=== PATIENT | female | born 1965 | race Two or more races ===

== ENCOUNTER 2024-09-05 12:17 | Emergency (ER) | payer MEDICAID ==
[~2024-09-05] VITALS: Ht 154.9 cm; Wt 94.8 kg
[2024-09-05 12:33] VITALS: BP 158/112; PULSE 103; RESP 18; O2SAT 96
--- NOTE | 2024-09-05 12:45 | ED.PDOC ---
History of Present Illness HPI Comments 58 y.o female with PMH of DM, HTN, hyperlipidemia, CVA, presents to the ED for a chief complaint of body pain and swelling associated with bilateral hand and digit numbness x 1 week. Patient reports "feeling bigger" than usual and describes pain as a throbbing sensation. Patient denies any focal weaknesses, sl urred speech, confusion, chest pain or SOB. Patient admits to not taking medications for the past 3 days due to personal issues at home and presents tearful upon assessment. Upon ED arrival, blood pressure read 158/112 Patient was on a medication for weight management, discontinue use by PCP orders 4 months ago, states weight has been 180lbs, today weigh in was at 209lb Chief Complaint: Body Pain Time Seen by MD: 12:20 Reviewed Notes: Nurses Notes, Medications, Allergies Allergies: Coded Allergies: NO KNOWN ALLERGIES (Unverified , 09/05/24) Information Source: Patient Mode of Arrival: Ambulatory Timing: Weeks (1) Duration: Since onset Past Medical History PAST MEDICAL HISTORY: CVA, DM, High Lipids, HTN Surgical History: , Hernia Repair, Hysterectomy, Pacemaker LEARNING AND DEVELOPMENT ADMINISTRATOR History: No Pertinent LEARNING AND DEVELOPMENT ADMINISTRATOR History Family History Family History: Reviewed,noncontributory to illness, No family hx of Cancer, No family hx of DM, No family hx of Heart meagan, No family hx of HTN, No family hx ofKidney meagan, No family hx of Liver meagan, No family hx of Lung meagan, No family hx of Stroke Social History Smoker: Non-Smoker Alcohol: Denies ETOH Use Drugs: Denies Drug Use Lives In: Home Constitutional: reports: others (swelling); denies: chills, diaphoresis, fatigue, fever, malaise, sweats, weakness EENTM: denies: blurred vision, double vision, ear bleeding, ear discharge, ear drainage, ear pain, ear ringing, eye pain, eye redness, hearing loss, mouth pain, mouth swelling, nasal discharge, nose bleeding, nose congestion, nose pain, photophobia, tearing, throat pain, throat swelling, voice changes, others Respiratory: denies: cough, hemoptysis, orthopnea, SOB at rest, shortness of breath, SOB with excertion, stridor, wheezing, others Cardiovascular: denies: chest pain, dizzy spells, diaphoresis, Dyspnea on exertion, edema, irregular heart beat, left arm pain, lightheadedness, palpitations, PND, syncope, others Gastrointestinal: denies: abdomen distended, abdominal pain, blood streaked bowels, constipated, diarrhea, dysphagia, difficulty swallowing, hematemesis, melena, nausea, poor appetite, poor fluid intake, rectal bleeding, rectal pain, vomiting, others Genitourinary: denies: abnormal vagina bleeding, burning, dyspareunia, dysuria, flank pain, frequency, hematuria, incontinence, pain, , vagina discharge, urgency, others Neurological: reports: numbness (bilateral hands ); denies: dizziness, fainting, headache, left sided numbness, left sided weakness, paresthesia, pre- existing deficit, right sided numbness, right sided weakness, seizure, speech problems, tingling, tremors, weakness, others Musculoskeletal: reports: joint swelling, muscle pain; denies: back pain, gout, joint pain, muscle stiffness, neck pain, others Integumetry: denies: bruises, change in color, change in hair/nails, dryness, laceration, lesions, lumps, rash, wounds, others Allergic/Immunocompromised: denies: Difficulty Healing, Frequent Infections, Hives, Itching, others Hematologic/Lymphatic: denies: anemia, blood clots, easy bleeding, easy bruising, swollen glands, others Endocrine: denies: excessive hunger, excessive sweating, excessive thirst, excessive urination, flushing, intolerance to cold, intolerance to heat, unexplained weight gain, unexplained weight loss, others Psychiatric: denies: anxiety, bipolar disorder, depression, hopeless, panic disorder, schizophrenia, sleepless, suicidal, others All Other Systems: Reviewed and Negative Physical Exam General Appearance: No Apparent Distress, Normal HEENT: Normal ENT Inspection, Pharynx Normal, TMs Normal Neck: Full Range of Motion, Non-Tender, Normal, Normal Inspection Respiratory: Chest Non-Tender, Lungs Clear, No Accessory Muscle Use, No Respiratory Distress, Normal Breath Sounds Cardiovascular: No Edema, No JVD, No Murmur, No Gallop, Normal Peripheral Pulses, Regular Rate/Rhythm Breast Exam: Deferred Gastrointestinal: No Organomegaly, Non Tender, No Pulsatile Mass, Normal Bowel Sounds, Soft Genitalia: Deferred Pelvic: Deferred Rectal: Deferred Extremities: No calf tenderness, Normal capillary refill, Normal inspection, Normal range of motion, Non-tender, No pedal edema Musculoskeletal : Apperance: Normal Neurologic: Alert, optical engineer II-XII nml as Tested, No Motor Deficits, Normal Affect, Normal Mood, No Sensory Deficits Cerebellar Function: Normal Reflexes: Normal Skin: Dry, Normal Color, Warm Lymphatic: No Adenopathy Was a procedure done? Was a procedure done?: No Differential Dx Considerations may include: chf, renal failure, medication noncompliance, weight gain, anxiety, electrolyte disorders, liver failure X-Ray, Labs, Meds, VS Vital Signs Date Time Temp Pulse Resp B/P (MAP) Pulse Ox O2 Delivery O2 Flow Rate FiO2 09/05/24 12:33 98.1 103 18 158/112 (127) 96 Lab Test 09/05/24 13:56 09/05/24 12:53 Range/Units Troponin I High Sensitivity 29 30 </=34 ng/L White Blood Count 5.8 4.4-10.8 10^3/uL Red Blood Count 4.83 4.0-5.20 10^6/uL Hemoglobin 14.0 12.2-16.2 g/dL Hematocrit 42.3 36.0-46.0 % Mean Corpuscular Volume 87.7 80.0-100.0 fL Mean Corpuscular Hemoglobin 29.1 28.0-32.0 pg Mean Corpuscular Hemoglobin Concent 33.2 32.0-36.0 g/dL Red Cell Distribution Width 14.9 H 11.8-14.3 % Platelet Count 189 140-450 10^3/uL Mean Platelet Volume 9.6 6.9-10.8 fL Neutrophils (%) (Auto) 55.6 37.0-80.0 % Lymphocytes (%) (Auto) 23.6 10.0-50.0 % Monocytes (%) (Auto) 10.0 0.0-12.0 % Eosinophils (%) (Auto) 9.4 H 0.0-7.0 % Basophils (%) (Auto) 1.4 0.0-2.0 % Neutrophils # (Auto) 3.2 1.6-8.6 10 ^3/uL Lymphocytes # (Auto) 1.4 0.4-5.4 10 ^3/uL Monocytes # (Auto) 0.6 0-1.3 10 ^3/uL Eosinophils # (Auto) 0.5 0-0.8 10 ^3/uL Basophils # (Auto) 0.1 0-0.2 10 ^3/uL Nucleated Red Blood Cells 0.1 % Sodium Level 139 136-145 mmol/L Potassium Level 4.1 3.5-5.1 mmol/L Chloride Level 103 98-107 mmol/L Carbon Dioxide Level 28 20-31 mmol/L Anion Gap 8 5-15 Blood Urea Nitrogen 13 9-23 mg/dL Creatinine 1.03 H 0.550-1.02 mg/dL Glomerular Filtration Rate Calc 63 >90 mL/min BUN/Creatinine Ratio 12.6 10.0-20.0 Serum Glucose 405 *H 74-106 mg/dL Calcium Level 9.8 8.7-10.4 mg/dL Total Bilirubin 0.6 0.2-1.0 mg/dL Aspartate Amino Transferase (AST) 23 13-40 U/L Alanine Aminotransferase (ALT) 25 7-40 U/L Alkaline Phosphatase 194 H 46-116 U/L B-Type Natriuretic Peptide 56.06 0-100 pg/mL Total Protein 6.8 5.7-8.2 g/dL Albumin 4.1 3.2-4.8 g/dL Current Medications Medications (Trade) Dose Ordered Sig/Clem Route Start Time Stop Time Status Last Admin Insulin Human Regular (InsuLIN R) 6 units ONCE ONCE SC 09/05/24 14:00 09/05/24 14:10 DC 09/05/24 14:31 Time of 1ST Reevaluation: 12:40 Reevaluation 1ST: Unchanged Time of 2ND Reevaluation: 13:30 Reevaluation 2ND: Improved Time of 3RD Reevaluation: 15:29 Reevaluation 3RD: pt eloped Patient Education/Counseling: Diagnosis, Treatment, Prognosis, Need For Follow Up Family Education/Counseling: Diagnosis, Treatment, Prognosis, Need For Follow Up, No Family Present Additional Information Ordered Test- CBC, CMP, ekg, trop, cxr Reviewed Results- LAB including BNP and Troponin, EKG, cxr Discuss Tx/Results- medical personnel, family independent interpretation of test results read by another provider- agree with radiology regarding cxr i was concerned about chf, renal failure, liver failure, causing 3rd spacing. i made preparation to admit pt for stabilization and further treatments/workups if these differentials were supported. however, pt eloped before workup is complete \\pt reportedly has been noncompliant to her medications due to stressors related to her family. i asked her to get her medications names, so i can refill them , but she left and never returned Departure 1 Departure Time of Disposition: 15:33 Impression: Primary Impression: Noncompliance Additional Impression: Feared complaint without diagnosis Disposition: 07 LEFT AWOL/ELOPED Condition: Other (unknown) Discharged With: Relative Critical Care Note Critical Care Time?: Yes (55 min-critical care time only) Critical care comment: due to concerns for sudden deterioration of pt's condition, the patient's care required my most attentive level and highest readiness to intervene. i assessed him, ordered the appropriate orders, reviewed the results, and reassessed the patient's response, formulated a care plan, communicated with medical personnel and consultants. total time include at least 50% face-face interaction and does not include any procedures Stability Stability form required: No I personally scribed for SJ KWOK MD ([facility]) on 09/05/24 at 12:45. Electronically submitted by Kizzy Amin ([email or web address]). I personally scribed for SJ KWOK MD ([facility]) on 09/05/24 at 12:58. Electronically submitted by Kizzy Amin ([email or web address]). I personally scribed for SJ KWOK MD ([facility]) on 09/05/24 at 13:01. Electronically submitted by Kizzy Amin ([email or web address]). SJ KWOK MD Sep 05, 2024 12:45
[2024-09-05 13:04] LABS: Basophils # (auto) 0.1 10 ^3/uL (0-0.2); Basophils % (auto) 1.4 % (0.0-2.0); Eosinophils # (auto) 0.5 10 ^3/uL (0-0.8); Eosinophils % (auto) 9.4 % (0.0-7.0); Hematocrit 42.3 % (36.0-46.0); Lymphocytes # (auto) 1.4 10 ^3/uL (0.4-5.4); Lymphocytes % (auto) 23.6 % (10.0-50.0); Mean Corpuscular Hemoglobin 29.1 pg (28.0-32.0); Mean Corpuscular Hgb Conc. 33.2 g/dL (32.0-36.0); Mean Corpuscular Volume 87.7 fL (80.0-100.0); Monocytes # (auto) 0.6 10 ^3/uL (0-1.3); Neutrophils # (auto) 3.2 10 ^3/uL (1.6-8.6); Neutrophils % (auto) 55.6 % (37.0-80.0); Nucleated Red Blood Cells % 0.1 %; Platelet Count (auto) 189 10^3/uL (140-450); Red Blood Cells 4.83 10^6/uL (4.0-5.20); Red Cell Distribution Width 14.9 % (11.8-14.3); White Blood Cell 5.8 10^3/uL (4.4-10.8)
[2024-09-05 13:34] LABS: Alanine Aminotransferase 25 U/L (7-40); Albumin 4.1 g/dL (3.2-4.8); Anion Gap 8 (5-15); Aspartate Aminotransferase 23 U/L (13-40); BUN/Creatinine Ratio 12.6 (10.0-20.0); Blood Urea Nitrogen 13 mg/dL (9-23); Calcium 9.8 mg/dL (8.7-10.4); Carbon Dioxide 28 mmol/L (20-31); Chloride 103 mmol/L (98-107); Potassium 4.1 mmol/L (3.5-5.1); Sodium 139 mmol/L (136-145)
[2024-09-05 13:35] LABS: Bilirubin, Total 0.6 mg/dL (0.2-1.0); Total Protein 6.8 g/dL (5.7-8.2)
[2024-09-05 13:42] LABS: Alkaline Phosphatase 194 U/L (46-116)
[2024-09-05 13:45] LABS: Glucose 405 mg/dL (74-106)
--- NOTE | 2024-09-05 13:52 | DVH ---
CLINICAL INFORMATION: 58 years old, Female; swelling. TECHNIQUE: Single AP portable chest radiograph was obtained. COMPARISON: None FINDINGS: Lungs: Clear. Cardiac: Heart size is within normal limits. Pulmonary vasculature: Unremarkable. Mediastinum/joleen: Unremarkable. Bones: No acute osseous abnormality identified. Other: Loop recorder device noted. IMPRESSION: No evidence of acute disease in the chest.
[2024-09-05] MEDS: InsuLIN REG 1unit/0.01ml Soln (100units/ml) SC ONE (14:31)
== END 2024-09-05 15:25 | disposition left against medical advice (07) ==
LOC: ER 12:17
DX: E11.9 Type 2 diabetes mellitus without complications (principal); E78.5 Hyperlipidemia, unspecified; I10 Essential (primary) hypertension; Z71.1 Person with feared health complaint in whom no diagnosis is made; Z86.73 Personal history of transient ischemic attack (TIA), and cerebral infarction without residual deficits; Z98.890 Other specified postprocedural states; Z90.710 Acquired absence of both cervix and uterus
CPT/HCPCS: 36415; 71045; 80053; 83880; 84484; 85025; 99284; J1815

== ENCOUNTER 2024-09-07 12:18 | Inpatient (IN) | payer MEDICAID ==
[~2024-09-07] VITALS: Ht 154.9 cm; Wt 97.2 kg
--- NOTE | 2024-09-07 12:53 | ED.PDOC ---
History of Present Illness HPI Comments 58F presents to the ER, due from being here yesterday at [facility] but eloping, This is the HPI that was written yesterday due from having the same symptoms, "58 y.o female with PMH of DM, HTN, hyperlipidemia, CVA, presents to the ED for a chief complaint of body pain and swelling associated with bilateral hand and digit numbness x 1 week. Patient reports "feeling bigger" than usual and describes pain as a throbbing sensation. Patient denies any focal weaknesses, slurred speech, confusion, chest pain or SOB. Patient admits to not taking medications for the past 3 days due to personal issues at home and presents tearful upon assessment. Upon ED arrival, blood pressure read 158/112 Patient was on a medication for weight management, discontinue use by PCP orders 4 months ago, states weight has been 180lbs, today weigh in was at 209lb". Pt was diagnosed w/ being hyperglycemic yesterday and eloped before getting Trx. Pt has been not compliant for medications for 4 months. Pt also reports on being in long car rides and also having right sided inner thigh/calf pain for 3 days. Chief Complaint: Dizziness Time Seen by MD: 12:35 Reviewed Notes: Nurses Notes, Medications, Allergies Allergies: Coded Allergies: NO KNOWN ALLERGIES (Unverified , 09/05/24) Information Source: Patient Mode of Arrival: Ambulatory Severity: Moderate Timing: Days Duration: Since onset, Days Prehospital treatment: None Past Medical History PAST MEDICAL HISTORY: CVA, DM, High Lipids, HTN Surgical History: , Hernia Repair, Hysterectomy, Pacemaker SUPERVISOR SPECIAL EFFECTS History: No Pertinent SUPERVISOR SPECIAL EFFECTS History Family History Family History: Reviewed,noncontributory to illness, No family hx of Cancer, No family hx of DM, No family hx of Heart meagan, No family hx of HTN, No family hx ofKidney meagan, No family hx of Liver meagan, No family hx of Lung meagan, No family hx of Stroke Social History Smoker: Non-Smoker Alcohol: Denies ETOH Use Drugs: Denies Drug Use Lives In: Home Constitutional: denies: chills, diaphoresis, fatigue, fever, malaise, sweats, weakness, others EENTM: denies: blurred vision, double vision, ear bleeding, ear discharge, ear drainage, ear pain, ear ringing, eye pain, eye redness, hearing loss, mouth pain, mouth swelling, nasal discharge, nose bleeding, nose congestion, nose pain, photophobia, tearing, throat pain, throat swelling, voice changes, others Respiratory: denies: cough, hemoptysis, orthopnea, SOB at rest, shortness of breath, SOB with excertion, stridor, wheezing, others Cardiovascular: denies: chest pain, dizzy spells, diaphoresis, Dyspnea on exertion, edema, irregular heart beat, left arm pain, lightheadedness, palpitations, PND, syncope, others Gastrointestinal: denies: abdomen distended, abdominal pain, blood streaked bowels, constipated, diarrhea, dysphagia, difficulty swallowing, hematemesis, melena, nausea, poor appetite, poor fluid intake, rectal bleeding, rectal pain, vomiting, others Genitourinary: denies: abnormal vagina bleeding, burning, dyspareunia, dysuria, flank pain, frequency, hematuria, incontinence, pain, , vagina discharge, urgency, others Neurological: reports: dizziness; denies: fainting, headache, left sided numbness, left sided weakness, numbness, paresthesia, pre-existing deficit, right sided numbness, right sided weakness, seizure, speech problems, tingling, tremors, weakness, others Musculoskeletal: reports: back pain; denies: gout, joint pain, joint swelling, muscle pain, muscle stiffness, neck pain, others Integumetry: denies: bruises, change in color, change in hair/nails, dryness, laceration, lesions, lumps, rash, wounds, others Allergic/Immunocompromised: denies: Difficulty Healing, Frequent Infections, Hives, Itching, others Hematologic/Lymphatic: denies: anemia, blood clots, easy bleeding, easy bruising, swollen glands, others Endocrine: denies: excessive hunger, excessive sweating, excessive thirst, excessive urination, flushing, intolerance to cold, intolerance to heat, unexplained weight gain, unexplained weight loss, others Psychiatric: denies: anxiety, bipolar disorder, depression, hopeless, panic disorder, schizophrenia, sleepless, suicidal, others All Other Systems: Reviewed and Negative Physical Exam Exam Comments Tender on inner right thigh and calf General Appearance: No Apparent Distress, Normal HEENT: Normal ENT Inspection, Pharynx Normal, TMs Normal Neck: Full Range of Motion, Non-Tender, Normal, Normal Inspection Respiratory: Chest Non-Tender, Lungs Clear, No Accessory Muscle Use, No Respiratory Distress, Normal Breath Sounds Cardiovascular: No Edema, No JVD, No Murmur, No Gallop, Normal Peripheral Pulses, Regular Rate/Rhythm Breast Exam: Deferred Gastrointestinal: No Organomegaly, Non Tender, No Pulsatile Mass, Normal Bowel Sounds, Soft Genitalia: Deferred Pelvic: Deferred Rectal: Deferred Extremities: No calf tenderness, Normal capillary refill, Normal inspection, Normal range of motion, Non-tender, No pedal edema Musculoskeletal : Apperance: Normal Neurologic: Alert, director of curriculum II-XII nml as Tested, No Motor Deficits, Normal Affect, Normal Mood, No Sensory Deficits Cerebellar Function: Normal Reflexes: Normal Skin: Dry, Normal Color, Warm Lymphatic: No Adenopathy Was a procedure done? Was a procedure done?: No EKG EKG : Pulse Rate (adult): 114 [place]: Normal Cardiac Rhythm: ST Block: None Hypertrophy: None ST: Normal Differential Dx Considerations may include: dvt, dka, poorly controlled diabetes, dehydration, electrolyte disorders, noncompliance, chf, renal failure, liver failure X-Ray, Labs, Meds, VS Vital Signs Date Time Temp Pulse Resp B/P (MAP) Pulse Ox O2 Delivery O2 Flow Rate FiO2 09/07/24 12:40 97.6 111 16 139/89 (106) 95 97.6 09/07/24 12:33 97.6 111 16 139/89 (106) 95 Lab Test 09/07/24 12:51 09/07/24 12:41 09/07/24 12:30 Range/Units Sodium Level 139 136-145 mmol/L Potassium Level 3.8 3.5-5.1 mmol/L Chloride Level 103 98-107 mmol/L Carbon Dioxide Level 24 20-31 mmol/L Anion Gap 12 5-15 Blood Urea Nitrogen 21 9-23 mg/dL Creatinine 1.13 H 0.550-1.02 mg/dL Glomerular Filtration Rate Calc 57 >90 mL/min BUN/Creatinine Ratio 18.6 10.0-20.0 Serum Glucose 289 H 74-106 mg/dL Calcium Level 10.3 8.7-10.4 mg/dL Troponin I High Sensitivity 31 </=34 ng/L Urine Color Light-yellow Yellow Urine Clarity Clear Clear Urine pH 5.0 5.0-9.0 Urine Specific [place] 1.032 1.001-1.035 Urine Protein Negative Negative Urine Ketones Negative Negative Urine Blood Negative Negative /uL Urine Nitrite Negative Negative Urine Bilirubin Negative Negative Urine Urobilinogen Normal Negative mg/dL Urine Leukocyte Esterase Negative Negative /uL Urine RBC 2 0 - 4 /hpf Urine WBC 2 0 - 5 /hpf Urine Squamous Epithelial Cells Few <5 /hpf Urine Bacteria Few H None Seen /hpf Urine Mucus Few None Seen Urine Yeast (Budding) Occasional None Seen /hpf Urine Glucose 4+ H Normal mg/dL POC Glucose 307 H 70-106 mg/dl Time of 1ST Reevaluation: 13:05 Reevaluation 1ST: Unchanged Time of 2ND Reevaluation: 14:02 Reevaluation 2ND: Unchanged Patient Education/Counseling: Diagnosis, Treatment, Prognosis, Need For Follow Up Family Education/Counseling: No Family Present Additional Information - I reviewed the following notes from patient's past medical encounters:09/05/24 - The following tests were ordered, and results were reviewed by me: Labs, EKG, cxr, us - independent interpretation of test result from another provider and agreed- cxr, us - Additional information was gathered from interviewing the following independent Historian: Family - I discussed treatments and results with medical personnel and consultants, family this is a highly noncompliant pt. she was seen yesterday, had elevated BS, eloped, and returned with the same symptoms. she also reported right leg pain, after driving from [place]. she is negative for DVT, but her BS is again out of contr ol. she is not in DKA, but if not treated, and not compliant, she will be at real risk to deteriorate into DKA. pt will be admitted to control her diabetes, provided education, and mediation management Departure 1 Departure Time of Disposition: 14:05 Impression: Primary Impression: Poorly controlled diabetes mellitus Additional Impressions: Myalgia Noncompliance Renal insufficiency Hypertension Qualified Codes: I10 - Essential (primary) hypertension Disposition: 09 ADMITTED INPATIENT Condition: Stable Critical Care Note Critical Care Time?: Yes (55 min-critical care time only) Critical care comment: due to the likelihood of patients condition suddenly deteriorating, the care requires my highest level of attention, readiness to intervene. my critical care include assessing and reassessing of patient's condition, response to treatments, ordering the appropriate tests, reviewing the results, ordering of treatments, discussing the care with medical personnel and consultants, and formulating a treatment plan, as well a reviewing various medical records. this include at least 50% face-face interaction, and does not include any procedures Stability Stability form required: No I personally scribed for SJ KWOK MD ([email or web address]) on 09/07/24 at 12:53. Electronically submitted by Luis Felipe Durham ([email or web address]). SJ KWOK MD Sep 07, 2024 12:53
[2024-09-07 13:15] LABS: Chloride 103 mmol/L (98-107); Potassium 3.8 mmol/L (3.5-5.1); Sodium 139 mmol/L (136-145)
[2024-09-07 13:16] LABS: Anion Gap 12 (5-15); Calcium 10.3 mg/dL (8.7-10.4); Carbon Dioxide 24 mmol/L (20-31)
[2024-09-07 13:21] LABS: BUN/Creatinine Ratio 18.6 (10.0-20.0); Blood Urea Nitrogen 21 mg/dL (9-23)
[2024-09-07 13:28] LABS: Glucose 289 mg/dL (74-106)
[2024-09-07 13:44] LABS: Urine Bacteria FEW /hpf (None Seen); Urine Blood Negative /uL (Negative); Urine Budding Yeast OCCASIONAL /hpf (None Seen); Urine Clarity Clear (Clear); Urine Color Light-Yellow (Yellow); Urine Mucus FEW (None Seen); Urine Protein, UAD Negative (Negative); Urine Specific Gravity 1.032 (1.001-1.035); Urine Urobilinogen Normal (Negative); Urine WBC 2 /hpf (0 - 5)
--- NOTE | 2024-09-07 13:46 | DVH ---
CLINICAL HISTORY: Right thigh and calf pain after a long drive. COMPARISON: None TECHNIQUE: Compression evaluation and color doppler evaluation of the deep veins of the right lower e xtremity was performed. Evaluation for augmentation and flow characteristics with doppler pulse wave imaging was performed.FINDINGS: This examination demonstrates normal compression, augmentation, and phasic flow of the right lower extremity. No evidence for echogenic thrombus within the right common femoral, femoral, and popliteal veins. The posterior tibial veins demonstrated normal compression and color flow at the level of the calf. IMPRESSION: There is no evidence for DVT in the right lower extremity.
[2024-09-07] MEDS ORDERED: ONDANSETRON HCL 4 MG/2 ML VIAL IV PRN (15:45)
[2024-09-07] MEDS ORDERED: DOCUSATE SOD 100 MG CAP PO PRN (15:45)
[2024-09-07] MEDS ORDERED: ACETAMINOPHEN 325 MG TAB PO PRN (15:45)
[2024-09-07] MEDS: SODIUM CHLORIDE 0.9% 1,000 ML IV SCH (15:45)
[2024-09-07] MEDS ORDERED: MORPHINE SULFATE INJ 2 MG/ml SYRG IV PRN (15:45)
[2024-09-07] MEDS ORDERED: TEMAZEPAM 15 MG CAP PO PRN (15:45)
[2024-09-07] MEDS ORDERED: MAALOX PLUS or MAALOX 30 ML PO PRN (15:45)
[2024-09-07] MEDS: cefTRIAXone 1GM/50ML D5W 50 ML IV SCH (15:45)
[2024-09-07] MEDS ORDERED: LORazepam 0.5 MG TAB PO PRN (15:45)
[2024-09-07] MEDS ORDERED: DEXTROSE (50%) 50ML SYRG IV PRN (15:45)
[2024-09-07 16:18] LABS: Cannabinoid Screen, Urine Neg (NEGATIVE)
[2024-09-07 16:20] LABS: Opiate Scree,Urine Neg (NEGATIVE)
--- NOTE | 2024-09-07 16:20 | DVHHP2 ---
History of Present Illness Reason for Visit: uncontrolled DM History of Present Illness 58-year-old patient with a past medical history of CVA diabetes hypertension hyperlipidemia comes into the ED patient was here before and eloped and now here again with the same similar complaints stating that she feels weak has dizziness patient states that the numbness and weakness that she still feels worse than before patient was concerned before that she might have been having a stroke on the previous day but does not have those symptoms anymore as of now patient is being evaluated and recommended for admission for multiple complaints of issues including having high blood pressure hyperglycemia and signs of an acute infection within the urine patient is for admission and continued management Cardiovascular: HTN Endocrine: Diabetes Review of Systems Constitutional: Yes: Weakness; No: Fever, Chills, Sweats, Malaise, Other Eyes: No: Pain, Vision change, Conjunctivae inflammation, Eyelid inflammation, Other, Redness ENT: No: Ear pain, Ear discharge, Nose pain, Nose discharge, Nose congestion, Mouth pain, Mouth swelling, Throat pain, Throat swelling, Other Respiratory: No: Cough, Dry, Shortness of breath, SOB with excertion, Wheezing, Hemoptysis, Pleuritic Pain, Sputum, Wheezing, Other Cardiovascular: No: Chest Pain, Palpitations, Orthopnea, Paroxysmal Noc. Dyspnea, Edema, Lt Headedness, Other Gastrointestinal: No: Nausea, Vomiting, Abdominal Pain, Diarrhea, Constipation, Melena, Hematochezia, Other Genitourinary: No Dysuria, No Frequency, No Incontinence, No Hematuria, No Retention, No Other Musculoskeletal: No: other, neck pain, shoulder pain, arm pain, back pain, hand pain, leg pain, foot pain Skin: No: Rash, Lesions, Jaundice, Bruising, Other Neurological: No: Weakness, Numbness, Incoordination, Change in speech, Confusion, Seizures, Other Allergies: Coded Allergies: NO KNOWN ALLERGIES (Unverified , 09/05/24) Exam Vital Signs Vital Signs Date Time Temp Pulse Resp B/P (MAP) Pulse Ox O2 Delivery O2 Flow Rate FiO2 09/07/24 12:40 97.6 111 16 139/89 (106) 95 97.6 General Appearance: Alert, Oriented X3, Cooperative, mild distress HEENT: Atraumatic, PERRLA Respiratory: Clear to auscultation, Normal air movement Cardiovascular: Regular rate, Normal S1, Normal S2 Abdominal: Normal bowel sounds, Soft, No tenderness Extremities: No clubbing, No cyanosis, No edema Skin: No rashes, No breakdown, No significant lesion Neuro: Normal gait, Normal speech Psych/Mental Status: Mood NL Labs/Xrays Labs Test 09/07/24 14:11 09/07/24 12:51 09/07/24 12:45 09/07/24 12:41 Range/Units Troponin I High Sensitivity 31 </=34 ng/L Sodium Level 139 136-145 mmol/L Potassium Level 3.8 3.5-5.1 mmol/L Chloride Level 103 98-107 mmol/L Carbon Dioxide Level 24 20-31 mmol/L Anion Gap 12 5-15 Blood Urea Nitrogen 21 9-23 mg/dL Creatinine 1.13 H 0.550-1.02 mg/dL Glomerular Filtration Rate Calc 57 >90 mL/min BUN/Creatinine Ratio 18.6 10.0-20.0 Serum Glucose 289 H 74-106 mg/dL Calcium Level 10.3 8.7-10.4 mg/dL Urine Color Light-yellow Yellow Urine Clarity Clear Clear Urine pH 5.0 5.0-9.0 Urine Specific [place] 1.032 1.001-1.035 Urine Protein Negative Negative Urine Ketones Negative Negative Urine Blood Negative Negative /uL Urine Nitrite Negative Negative Urine Bilirubin Negative Negative Urine Urobilinogen Normal Negative mg/dL Urine Leukocyte Esterase Negative Negative /uL Urine RBC 2 0 - 4 /hpf Urine WBC 2 0 - 5 /hpf Urine Squamous Epithelial Cells Few <5 /hpf Urine Bacteria Few H None Seen /hpf Urine Mucus Few None Seen Urine Yeast (Budding) Occasional None Seen /hpf Urine Glucose 4+ H Normal mg/dL Test 09/07/24 12:30 Range/Units POC Glucose 307 H 70-106 mg/dl Assessment/Plan Assessment/Plan Admit to [facility] Uncontrolled diabetes with severe hyperglycemia Glucose greater than 300 IV hydration aggressive insulin sliding scale management Suspected patient is noncompliant Rule out signs of acute infection urinary analysis pending Patient with hypertensive urgency Continue with home medications If no home medications p.r.n. hypertensive medications with hydralazine Plan discussed with: Patient My Orders Orders - BRYN PORTILLO MD Procedure Category Date Status Time Glucose Blood PHA 09/07/24 Logged (Accu-Chek Comfort 16:00 Insulin R (Human) PHA 09/07/24 Logged (Insulin R) 16:00 Dextrose 50% Syringe PHA 09/07/24 Logged 15:45 Admit ADMIT 09/07/24 Transmitted 15:41 Code Status CODE 09/07/24 Transmitted 15:41 Vital Signs [facility] 09/07/24 In Process 15:41 Review Orders With [facility] 09/07/24 In Process Adm. 15:41 Consistent DIET 09/07/24 Transmitted Carb(Ccho)Diabetes Dinner Sodium Chloride 0.9% PHA 09/07/24 Logged 15:45 Lorazepam Tablet PHA 09/07/24 Logged (Ativan Tablet) 15:45 Alum & Mag PHA 09/07/24 Logged Hydrox-Simethicone 15:45 Docusate Sodium PHA 09/07/24 Logged Capsule (Colace 15:45 Acetaminophen Tablet PHA 09/07/24 Logged (Tylenol Tablet) 15:45 Temazepam (Restoril) PHA 09/07/24 Logged 15:45 Notify Of Changes [facility] 09/07/24 In Process From Base 15:41 Advance Directive [facility] 09/07/24 In Process 15:41 Basic Metabolic Panel LAB 09/08/24 Verified 04:00 Complete Blood Count LAB 09/08/24 Verified 04:00 Patient Condition ORDERS 09/07/24 Transmitted 15:41 Allergies [facility] 09/07/24 In Process 15:41 Hydrocodone-Acet PHA 09/07/24 Logged 5/325mg Tab ([place] 15:45 Ondansetron Hcl PHA 09/07/24 Logged (Zofran) 15:45 Morphine Sulfate PHA 09/07/24 Logged Injection 15:45 Notify Of Changes [facility] 09/07/24 In Process From Base 15:41 Oxygen By Nasal RT 09/07/24 Transmitted Cannula 15:41 Insulin Lispro PHA 09/07/24 Logged (Human) (Humalog) 15:45 Drug Screen LAB 09/07/24 In Process 15:41 Ceftriaxone 1gm/50ml PHA 09/07/24 Logged D5w (Rocephin) 15:45 Pharmacy [facility] 09/07/24 In Process Clarification: 16:16 Problem List: (1) Noncompliance (2) Poorly controlled diabetes mellitus (3) Hypertension (4) Renal insufficiency Date of Service: Sep 07, 2024 Billing Provider: BRYN PORTILLO MD Common Visit Codes: 95915-[id number] INP/OBS CARE (HIGH) BRYN PORTILLO MD Sep 07, 2024 16:20
[2024-09-07 16:21] LABS: Amphetamine Screen, Urine Neg (NEGATIVE); Barbiturate Scree,Urine Neg (NEGATIVE); Benzodiazephine Screen, Urine Neg (NEGATIVE); Cocaine Screen, Urine Neg (NEGATIVE); Phencyclidine Screen, Urine Neg (NEGATIVE)
[2024-09-07] MEDS: ACCU-CHEK COMFORT CURVE STRIP VI SCH (17:51)
[2024-09-07] MEDS: INSULIN LISPRO (HUMAN) 100 UNITS/ML ML SC ONE (17:51)
[2024-09-07] MEDS: InsuLIN REG 1unit/0.01ml Soln (100units/ml) SC SCH (17:52)
[2024-09-07 18:34] VITALS: BP 133/76; PULSE 103; RESP 17; TEMP 98.9; O2SAT 97
[2024-09-07 18:50] VITALS: BP 138/74; PULSE 78; PULSE 88; RESP 18; TEMP 98.5; O2SAT 98
[2024-09-07 19:32] VITALS: PULSE 103; RESP 17; O2SAT 97
[2024-09-07 20:00] VITALS: PULSE 102; RESP 19; O2SAT 95
[2024-09-07 21:00] VITALS: BP 102/58; PULSE 102; RESP 19; TEMP 97.8; O2SAT 95
[2024-09-08] VITALS (8 sets, daily range): BP systolic 95–126; BP diastolic 50–74; PULSE 85–98; RESP 16–20; TEMP 97.7–98.4; O2SAT 16–95
[2024-09-08 08:03] LABS: Basophils # (auto) 0.1 10 ^3/uL (0-0.2); Basophils % (auto) 1.3 % (0.0-2.0); Eosinophils # (auto) 0.6 10 ^3/uL (0-0.8); Hematocrit 40.5 % (36.0-46.0); Hemoglobin 13.2 g/dL (12.2-16.2); Lymphocytes # (auto) 1.4 10 ^3/uL (0.4-5.4); Lymphocytes % (auto) 25.7 % (10.0-50.0); Mean Corpuscular Hemoglobin 28.3 pg (28.0-32.0); Mean Corpuscular Hgb Conc. 32.6 g/dL (32.0-36.0); Mean Corpuscular Volume 86.6 fL (80.0-100.0); Monocytes # (auto) 0.6 10 ^3/uL (0-1.3); Monocytes % (auto) 10.1 % (0.0-12.0); Neutrophils # (auto) 2.9 10 ^3/uL (1.6-8.6); Neutrophils % (auto) 52.9 % (37.0-80.0); Nucleated Red Blood Cells % 0.1 %; Platelet Count (auto) 178 10^3/uL (140-450); Red Blood Cells 4.68 10^6/uL (4.0-5.20); Red Cell Distribution Width 15.2 % (11.8-14.3); White Blood Cell 5.5 10^3/uL (4.4-10.8)
[2024-09-08 08:07] LABS: Sodium 143 mmol/L (136-145)
[2024-09-08 08:08] LABS: Anion Gap 11 (5-15); Calcium 9.3 mg/dL (8.7-10.4); Carbon Dioxide 24 mmol/L (20-31)
[2024-09-08 08:13] LABS: BUN/Creatinine Ratio 17.6 (10.0-20.0); Blood Urea Nitrogen 15 mg/dL (9-23); Glucose 104 mg/dL (74-106)
[2024-09-08 08:23] LABS: Chloride 108 mmol/L (98-107); Potassium 3.3 mmol/L (3.5-5.1)
--- NOTE | 2024-09-08 12:14 | DVHPNRES ---
Progress Note Date Seen: Sep 08, 2024 Resident Creating Document: AP NORWOOD RESIDENT Medical Necessity Reason Pt with a Central, PICC or Fol: No Medical Necessity Reason Generalized body weakness hyperglycemia Subjective Review of Systems This is a 58-year-old patient with a pmhx significant for CVA, diabetes, hypertension, hyperlipidemia who presented to the ED with a chief complaint of generalized weakness, numbness, dizziness and hyperglycemia for some time now. According to the patient, the numbness and weakness that she felt was similar to or worse than what she had felt in the past when she had a stroke. Fearing that she might be having another stroke, patient came to the ED for evaluation. Also patient has been noncompliant with her antidiabetic medications. She said because has been giving a side effect of feeling of GERD or having some irritation in her throat therefore she stopped taking the medication and did not follow up with a primary care physician for probably a change in medication. In the ED, patient's vitals were grossly unremarkable, CBC was unremarkable, chemistry been feeling potassium of 3.3, hemoglobin A1c 11.9 Constitutional: Denies fever no chills no feeling of malaise HEENT: Denies headache, ear pain, ear discharges, conjunctivitis, nasal discharge throat pain Cardiovascular: Denies chest pain, palpitation, orthopnea, PND, or pedal edema Respiratory: Denies shortness of breath, cough cough, sputum production, hemoptysis, GI: Denies abdominal pain, nausea, vomiting, diarrhea, hematemesis, hematochezia, : Denies frequency, urgency, hematuria, Endocrine: Denies unintentional weight gain or weight loss, feeling of hot flashes, German: Denies easy bruising, bleeding disorders, epistaxis Musculoskeletal:: Finger joints pains, pains, muscle aches Psych: No evidence of depression, elizabeth, suicidal ideation Past medical history: Hypertension, diabetes, hyperlipidemia, Past surgical history: Cholecystectomy, hernia 2 times, Social history: lives with her children, she has a lot patient was placed in LED letters. WHOLE SMOKE Family history: Noncontributory Objective vital signs Vital Sign Date Time Temp Pulse Resp B/P (MAP) Pulse Ox O2 Delivery O2 Flow Rate FiO2 09/08/24 09:00 98.1 89 17 95/64 (74) 95 98.1 09/07/24 20:00 Room Air* 0 21 Total Intake and Output 11/30/24 11/30/24 12/1/24 15:00 23:00 07:00 Intake Total 1450 ml Balance 1450 ml medications Current Medications Medications Dose Ordered Sig/Clem Route Start Time Stop Time Status Last Admin Dose Admin Diagnostic Test (Pha) 1 strip IQ4HR 09/07/24 16:00 09/08/24 08:20 1 STRIP Insulin Human Regular IQ4HR SC 09/07/24 16:00 09/07/24 23:57 2 UNITS Dextrose 50 ml UD PRN IV 09/07/24 15:45 Sodium Chloride 1,000 ml @ 100 mls/hr Q10H IV 09/07/24 15:45 09/08/24 09:24 100 MLS/HR Lorazepam 0.5 mg Q6HP PRN PO 09/07/24 15:45 Al Hydrox/Mg Hydrox/Simethicone 30 ml Q6HP PRN PO 09/07/24 15:45 Docusate Sodium 100 mg BIDPRN PRN PO 09/07/24 15:45 Acetaminophen 650 mg Q6HP PRN PO 09/07/24 15:45 Temazepam 15 mg QHSP PRN PO 09/07/24 15:45 Acetaminophen/ Hydrocodone Bitart 1 tab Q4HP PRN PO 09/07/24 15:45 Ondansetron HCl 4 mg Q4HP PRN IV 09/07/24 15:45 Morphine Sulfate 2 mg Q4HPRN PRN IV 09/07/24 15:45 Ceftriaxone Sodium 50 ml @ 100 mls/hr DAILY IV 09/07/24 15:45 09/08/24 09:23 100 MLS/HR Examination General examination- Not in acute distress HEENT: PEERLA, no acute nasal discharge Chest: S1-S2 audible, rate and rhythm regular, no murmur Lung: CTAB, no wheeze or rhonchi Abdomen: Nondistend, BS+, nontenderness, no organomegaly Musculoskeletal: hand joint tenderness bilateral Lower extremity: no leg edema Neurological: cranial nerves intact, Sensation intact, Power 5/5 all 4 limbs, Psychiatry-- Normal mood and affect Skin- no acute rash or purpura laboratory and microbiology Laboratory Tests 09/08/24 07:31 Test 09/08/24 07:31 Range/Units Serum Glucose 104 74-106 mg/dL Labs and/or images reviewed: Labs reviewed by me, Image(s) reviewed by me Problem List/Assessment/Plan Problem List/Assessment/Plan Generalized weakness --> Hgb: 14, No evidence of anemia --> PT evaluation --> All Imaging are negative for acute process Proximal interphalangeal joint tenderness --> Rule out RA vs gout --> uric acid, RA, ESR --> X-ray --> pain medication ( Morphine, [place]) Uncontrolled diabetes --> noncompliant with home medications --> hgb A1c: 11.9% --> Lantus 20 units --> Regular insulin --> Accu checks --> Recommended ophthalmology follow on outpatient Hypertension --> 139/89 --> hydralazine p.r.n. Hyperlipidemia --> Continue atorvastatin --> Aspirin 81 mg daily Possible LIZBET; vasomotor nephropathy --> Cr: 1.13--> 0.85 --> IV hydration Morbid obesity --> BMI: 40. --> lifestyle modification advised Goal of care discussed for 20 minutes; full code Nursing staff helped with translation from Turkmen Case and plan discussed with Dr. Alonzo Plan discussed with: Patient, Other (Sister; nurse) My Orders My Orders Orders - AP NORWOOD RESIDENT Procedure Category Date Status Time Potassium Effervesent PHA 09/08/24 Logged Tab (Klor-Con/Ef) 12:15 Erythrocyte LAB 09/08/24 Logged Sedimentation Rate 12:08 Hemoglobin A1c LAB 09/08/24 Logged 12:08 Addendum Addendum Addendum I was physically present for the case portions of the service provided to patient by THE RESIDENT. I have reviewed the documentation, discussed the case with resident and agree with the resident's documentation except as noted. Also the patient's clinical case was discussed with the patient's nurse. This medical document was created using an electronic medical record system with computerized dictation system. Although this document has been carefully reviewed, there might still be some phonetic and typographical errors. These areas are purely typographical due to imperfections of the software programs, and do not reflect any compromise in the patient's medical care. Late signature. Date of Service: Sep 08, 2024 Billing Provider: YOSEF ALONZO MD Common Visit Codes: [id number] INP/OBS CARE(HIGH) Secondary Visit Codes: [id number] CARE PLAN 30 MINUTES (20 minutes) AP NORWOOD Sep 08, 2024 12:14 YOSEF ALONZO MD Sep 09, 2024 05:20
--- NOTE | 2024-09-08 12:19 | MEDREC ---
[facility] ASP Intervention Section I [facility] ASP Intervention: Review courses of therapy (PLEASE CONSIDER D/C ANTIBIOTIC(S) IN ABSENCE OF BACTERIAL INFECTION ) MUNA FREY PHARMACIST Sep 08, 2024 12:19
[2024-09-08 13:26] LABS: Erythrocyte Sedimentation Rate 16 mm/hr (0-20)
[2024-09-08] MEDS: POTASSIUM EFFERVESENT TAB 25 MEQ PO ONE (14:19)
--- NOTE | 2024-09-08 15:51 | DVH ---
CLINICAL INDICATION: PIP joint pains TECHNIQUE: 3 radiographic views of the right hip were obtained. Comparison: None FINDINGS/IMPRESSION: There is no evidence of acute fracture or dislocation. Mild narrowing of the distal interphalangeal joint of the fingers suggesting arthritic changes. Proxi mal interphalangeal joint also shows mild narrowing but no bony erosions no fracture. The alignment is anatomical. There is no radiopaque foreign body.
--- NOTE | 2024-09-08 15:55 | DVH ---
CLINICAL INDICATION: PIP joint pains TECHNIQUE: 3 radiographic views of the left hand hypoxia were obtained. Comparison: None FINDINGS/IMPRESSION: There is no evidence of acute fracture or dislocation. The visualized joint space is well maintained. The alignment is anatomical. There is no radiopaque foreign body.
[2024-09-08] MEDS: ASPirin 81 mg TAB PO ONE (18:59)
[2024-09-08] MEDS: ATORVASTATIN 20 MG TAB PO SCH (21:22)
[2024-09-08] MEDS: HYDROcodone-ACET 5/325MG TAB PO PRN (23:48)
[2024-09-09 01:00] VITALS: BP 91/44; PULSE 85; RESP 17; TEMP 98.1; O2SAT 90
[2024-09-09 05:00] VITALS: BP 93/59; PULSE 77; RESP 18; TEMP 97.9; O2SAT 95
[2024-09-09 07:23] LABS: Calcium 9.8 mg/dL (8.7-10.4); Sodium 142 mmol/L (136-145)
[2024-09-09 07:24] LABS: Anion Gap 9 (5-15); Carbon Dioxide 26 mmol/L (20-31)
[2024-09-09 07:29] LABS: BUN/Creatinine Ratio 19.8 (10.0-20.0); Blood Urea Nitrogen 17 mg/dL (9-23)
[2024-09-09 07:32] LABS: Chloride 107 mmol/L (98-107); Glucose 111 mg/dL (74-106)
[2024-09-09 08:00] VITALS: PULSE 80; RESP 16; O2SAT 92
[2024-09-09] MEDS ORDERED: DEXTROSE (50%) 50ML SYRG IV PRN (08:30)
[2024-09-09 09:00] VITALS: BP 117/78; PULSE 80; RESP 16; TEMP 97.7; O2SAT 92
[2024-09-09] MEDS ORDERED: INSULIN LANTUS (GLARGINE) 1 /0.01ml (100units/ml) SC SCH (10:00)
[2024-09-09] MEDS: ASPirin 81 mg TAB PO SCH (10:12)
[2024-09-09] MEDS: ACCU-CHEK COMFORT CURVE STRIP VI SCH (12:06)
[2024-09-09] MEDS: InsuLIN REG 1unit/0.01ml Soln (100units/ml) SC SCH (12:10)
--- NOTE | 2024-09-09 12:29 | ECG ---
[facility] Test Date: 2024-09-07 Test Time: 12:38:30 Pat Name: AMY PEPEDepartment: ER [facility] Gender: F Clinical Documentation Specialist: CL : [id number] Requested By: JS KWOK Order Number: [id number] Reading MD: Vince Lozano Measurements Intervals [place] Rate: 114 P: 48 AL: 131 QRS: 93 QRSD: 80 T: 8 QT: 334 QTc: 461 Interpretive Statements Sinus tachycardia Borderline right axis deviation Electronically Signed On 09-11-2024 16:09:24 PST by Vince Lozano Please click the below link to view image of tracing.
[2024-09-09 13:00] VITALS: BP 128/79; PULSE 80; RESP 18; TEMP 97.9; O2SAT 95
[2024-09-09 13:06] LABS: Amphetamine Screen, Urine Neg (NEGATIVE); Benzodiazephine Screen, Urine Neg (NEGATIVE)
[2024-09-09 13:07] LABS: Barbiturate Scree,Urine Neg (NEGATIVE); Cannabinoid Screen, Urine Neg (NEGATIVE); Cocaine Screen, Urine Neg (NEGATIVE); Opiate Scree,Urine Neg (NEGATIVE); Phencyclidine Screen, Urine Neg (NEGATIVE)
[2024-09-09] MEDS ORDERED: ATOR20TA50 PO (13:11)
[2024-09-09] MEDS ORDERED: EMPA1TAB PO (13:11)
[2024-09-09] MEDS ORDERED: ASPI-325 PO (13:11)
[2024-09-09] MEDS ORDERED: METF-489 PO (13:11)
--- NOTE | 2024-09-09 13:18 | DVHDSRES ---
Discharge Summary Date of Admission Resident Creating Document: AP NORWOOD RESIDENT Sep 07, 2024 at 15:41 Date of Discharge: Sep 09, 2024 Admitting Diagnosis Generalized weakness uncontrolled diabetes Labs/Diagnostic Data: Laboratory Results Test 09/09/24 11:39 09/09/24 06:41 09/08/24 12:36 09/08/24 07:31 POC Glucose 182 mg/dl (70-106) Sodium Level 142 mmol/L (136-145) Potassium Level 4.0 mmol/L (3.5-5.1) Chloride Level 107 mmol/L (98-107) Carbon Dioxide Level 26 mmol/L (20-31) Anion Gap 9 (5-15) Blood Urea Nitrogen 17 mg/dL (9-23) Creatinine 0.86 mg/dL (0.550-1.02) Glomerular Filtration Rate Calc 79 mL/min (>90) BUN/Creatinine Ratio 19.8 (10.0-20.0) Serum Glucose 111 mg/dL (74-106) Calcium Level 9.8 mg/dL (8.7-10.4) Urine Opiates Screen Neg (NEGATIVE) Urine Fentanyl Screen Neg (NEGATIVE) Urine Barbiturates Screen Neg (NEGATIVE) Urine Phencyclidine Screen Neg (NEGATIVE) Urine Amphetamines Screen Neg (NEGATIVE) Urine Benzodiazepines Screen Neg (NEGATIVE) Urine Cocaine Screen Neg (NEGATIVE) Urine Cannabinoids Screen Neg (NEGATIVE) White Blood Count 5.5 10^3/uL (4.4-10.8) Red Blood Count 4.68 10^6/uL (4.0-5.20) Hemoglobin 13.2 g/dL (12.2-16.2) Hematocrit 40.5 % (36.0-46.0) Mean Corpuscular Volume 86.6 fL (80.0-100.0) Mean Corpuscular Hemoglobin 28.3 pg (28.0-32.0) Mean Corpuscular Hemoglobin Concent 32.6 g/dL (32.0-36.0) Red Cell Distribution Width 15.2 % (11.8-14.3) Platelet Count 178 10^3/uL (140-450) Mean Platelet Volume 9.7 fL (6.9-10.8) Neutrophils (%) (Auto) 52.9 % (37.0-80.0) Lymphocytes (%) (Auto) 25.7 % (10.0-50.0) Monocytes (%) (Auto) 10.1 % (0.0-12.0) Eosinophils (%) (Auto) 10.0 % (0.0-7.0) Basophils (%) (Auto) 1.3 % (0.0-2.0) Neutrophils # (Auto) 2.9 10 ^3/uL (1.6-8.6) Lymphocytes # (Auto) 1.4 10 ^3/uL (0.4-5.4) Monocytes # (Auto) 0.6 10 ^3/uL (0-1.3) Eosinophils # (Auto) 0.6 10 ^3/uL (0-0.8) Basophils # (Auto) 0.1 10 ^3/uL (0-0.2) Nucleated Red Blood Cells 0.1 % Erythrocyte Sedimentation Rate 16 mm/hr (0-20) Hemoglobin A1c 11.9 % A1C (<5.7) Uric Acid 6.9 mg/dL (3.1-7.8) Test 09/07/24 17:07 09/07/24 12:41 Troponin I High Sensitivity 29 ng/L (</=34) Urine Color Light-yellow (Yellow) Urine Clarity Clear (Clear) Urine pH 5.0 (5.0-9.0) Urine Specific [place] 1.032 (1.001-1.035) Urine Protein Negative (Negative) Urine Ketones Negative (Negative) Urine Blood Negative /uL (Negative) Urine Nitrite Negative (Negative) Urine Bilirubin Negative (Negative) Urine Urobilinogen Normal mg/dL (Negative) Urine Leukocyte Esterase Negative /uL (Negative) Urine RBC 2 /hpf (0 - 4) Urine WBC 2 /hpf (0 - 5) Urine Squamous Epithelial Cells Few /hpf (<5) Urine Bacteria Few /hpf (None Seen) Urine Mucus Few (None Seen) Urine Yeast (Budding) Occasional /hpf (None Urine Glucose 4+ mg/dL (Normal) Other Laboratory Tests 09/09/24 06:41 09/08/24 07:31 Brief Hx & Hospital Course: This 58-year-old female Vincentian speaking with a pmhx significant for CVA, diabetes, hypertension, hyperlipidemia who presented to the ED with a chief complaint of generalized weakness, numbness, dizziness and hyperglycemia of 377. Patient for the most part has been compliant with her anti-diabetes medications. Stating that she was having throat discomfort with medications and does not have a PCP. Her Hgb A1c check read 11.9 and low potassium. Patient also mentioned pains in her hands. X-ray of the hand review arthritis changes in the right hand. Patient was managed for uncontrolled diabetes, hypokalemia and arthitis. Today, during my assessment, patient seemed stable for discharge. I educated the patient on the importance of medication adherence and glycemic control. I went over some of the complications of diabetes like kidney failure, neuropathies and diabetic retinopathy. We discharge patient home with once month supply of metformin, jardiance, 1 kit of glucometer and strips and arranged for a follow up at the discharge clinic in a week. Patient is to keep a blood sugar diary and bring it with her to the discharge clinic. Patient expressed understanding and all her questions addressed. General examination- Not in acute distress HEENT: PEERLA, no acute nasal discharge Chest: S1-S2 audible, rate and rhythm regular, no murmur Lung: CTAB, no wheeze or rhonchi Abdomen: Nondistend, BS+, nontenderness, no organomegaly Musculoskeletal: hand joint tenderness bilateral-improving Lower extremity: no leg edema Neurological: cranial nerves intact, Sensation intact, Power 5/5 all 4 limbs, Psychiatry-- Normal mood and affect Skin- no acute rash or purpura Will discharge home today. To follow up at the discharge clinic in a week. Case and discharge plans discussed with Dr. Cline Operations or Procedures ORDERING PHYSICIAN: AP NORWOOD PROCEDURE(s): LHAN - L HAND 3V XRAY REASON: PIP joint pains ORDER NUMBER(s): [id number], ACCESSION NUMBER(s): [id number] CLINICAL INDICATION: PIP joint pains TECHNIQUE: 3 radiographic views of the left hand hypoxia were obtained. Comparison: None FINDINGS/IMPRESSION: There is no evidence of acute fracture or dislocation. The visualized joint space is well maintained. The alignment is anatomical. There is no radiopaque foreign body. ATED BY: BERKLEY WOODRUFF DO DICTATED DATE/TIME: 09/08/24 1644 ORDERING PHYSICIAN: SJ KWOK MD PROCEDURE(s): RLDVT - RT Lower DVT REASON: [place] drives to [place] and has had right inner thigh, and calf pain ORDER NUMBER(s): [id number], ACCESSION NUMBER(s): [id number] CLINICAL HISTORY: Right thigh and calf pain after a long drive. COMPARISON: None TECHNIQUE: Compression evaluation and color doppler evaluation of the deep veins of the right lower extremity was performed. Evaluation for augmentation and flow characteristics with doppler pulse wave imaging was performed.FINDINGS: This examination demonstrates normal compression, augmentation, and phasic flow of the right lower extremity. No evidence for echogenic thrombus within the right common femoral, femoral, and popliteal veins. The posterior tibial veins demonstrated normal compression and color flow at the level of the calf. IMPRESSION: There is no evidence for DVT in the right lower extremity. ATED BY: ARMANDO VOGEL DO DICTATED DATE/TIME: 09/07/24 1343 SIGNED BY: ARMANDO VOGEL DO SIGNED DATE/TIME: 09/07/24 1343 Condition at Discharge: Good Final Diagnosis/Problems List UTI Uncontrolled diabetes arthritis of the right fingers Generalized weakness Discharge Disposition: Home Discharge Instruct/Medications Diet: See Comment Diet comment: diabetic diets Activity: No Restrictions, As Tolerated Follow Up/Referral: 7 days Medications: per medication list Discharge Statement: "Patient was advised to return to the ER or call 911 if any headaches, dizziness, shortness of breath, chest pain, abdominal pain, bleeding, fevers, or worsening of medical condition. Patient was counseled about treatment plan, medications, possible side effects, patientverbalized understanding. All questions were answered to the best of my ability. This discharge took greater then 30 minutes in planning, reviewing documentation, counseling the patient, and discussing with other team members." ASSESSMENT ASSESSMENT Assessment UTI Uncontrolled diabetes arthritis of the right fingers Generalized weakness Date of Service: Sep 09, 2024 Billing Provider: CLAYTON OTOOLE MD Common Visit Codes: 39901-NIE/OBS DISCH DAY >30min AP NORWOOD RESIDENT Sep 09, 2024 13:18 CLAYTON OTOOLE MD Sep 15, 2024 23:49
[2024-09-09] MEDS ORDERED: [UNRECOGNIZED DRUG - CODE] SUBCUT (13:42)
== END 2024-09-09 15:50 | disposition home or self-care (01) | DRG 420 ==
LOC: ER 12:18 → OVERFLOW 15:41 → WEST WING 18:39
PROVIDERS: ADMIT Student in an Organized Health Care Education/Training Program; ATTEND Student in an Organized Health Care Education/Training Program
DX: E11.00 Type 2 diabetes mellitus with hyperosmolarity without nonketotic hyperglycemic-hyperosmolar coma (NKHHC) (principal); N17.0 Acute kidney failure with tubular necrosis; N28.9 Disorder of kidney and ureter, unspecified; E66.01 Morbid (severe) obesity due to excess calories; I16.0 Hypertensive urgency; M79.18 Myalgia, other site; E78.5 Hyperlipidemia, unspecified; M13.841 Other specified arthritis, right hand; Z86.73 Personal history of transient ischemic attack (TIA), and cerebral infarction without residual deficits; Z91.199 Patient's noncompliance with other medical treatment and regimen due to unspecified reason; Z90.710 Acquired absence of both cervix and uterus; Z79.4 Long term (current) use of insulin; Z68.39 Body mass index [BMI] 39.0-39.9, adult
CPT/HCPCS: 36415; 73130; 80048; 80307; 81001; 82962; 83036; 84484; 84550; 85025; 85652; 93005; 93971; 97163; 99291; G0378; J1815

== ENCOUNTER → 2024-11-26 | Outpatient (CLI) | payer MEDICAID ==
[~2024-11-26] MED LIST: ASPI-325 PO; ATOR20TA50 PO; EMPA1TAB PO; METF-489 PO; [UNRECOGNIZED DRUG - CODE] SUBCUT
[2024-11-26 10:06] LABS: Urine Bacteria FEW /hpf (None Seen); Urine Blood 1+ /uL (Negative); Urine Clarity Clear (Clear); Urine Color Yellow (Yellow); Urine Mucus FEW (None Seen); Urine Protein, UAD Negative (Negative); Urine Specific Gravity 1.021 (1.001-1.035); Urine Squamous Epithelial Cell FEW /hpf (<5); Urine Urobilinogen 3 mg/dL (Negative); Urine WBC 6 /HPF (0-5); Urine pH 5.5 (5.0-9.0)
[2024-11-26 10:13] LABS: Hemoglobin 13.9 g/dL (12.2-16.2); Mean Corpuscular Hemoglobin 28.2 pg (28.0-32.0); Mean Corpuscular Hgb Conc. 32.4 g/dL (32.0-36.0); Platelet Count (auto) 190 10^3/uL (140-450); Red Blood Cells 4.94 10^6/uL (4.0-5.20); White Blood Cell 5.9 10^3/uL (4.4-10.8)
[2024-11-26 10:21] LABS: Band Neutrophils % (manual) 0; Basophils % (manual) 0 (0.0-2.0); Blast Cells 0; Metamyelocytes % 0; Myelocytes % 0; Promyelocytes % 0; Reactive Lymphocytes 0
[2024-11-26 10:41] LABS: Alanine Aminotransferase 17 U/L (7-40); Albumin 4.4 g/dL (3.2-4.8); Anion Gap 6 (5-15); Aspartate Aminotransferase 19 U/L (13-40); BUN/Creatinine Ratio 16.7 (10.0-20.0); Bilirubin, Total 0.9 mg/dL (0.2-1.0); Blood Urea Nitrogen 13 mg/dL (9-23); Calcium 10.4 mg/dL (8.7-10.4); Carbon Dioxide 29 mmol/L (20-31); Potassium 3.9 mmol/L (3.5-5.1); Sodium 143 mmol/L (136-145); Total Protein 7.1 g/dL (5.7-8.2)
[2024-11-26 10:44] LABS: Chloride 108 mmol/L (98-107); Glucose 172 mg/dL (74-106)
[2024-11-26 10:45] LABS: Alkaline Phosphatase 146 U/L (46-116)
[2024-11-26 11:17] LABS: Eosinophils % (manual) 13 (0-7); Lymphocytes % (manual) 25 (10.0-50.0); Monocytes % (manual) 7 (0-12); Platelet Estimate Adequate
[2024-11-26 15:20] LABS: Triglycerides 83 mg/dL (< 150)
[2024-11-26 15:21] LABS: Cholesterol 170 mg/dL (< 200); HDL Cholesterol 47 mg/dL (40-59)
[2024-11-26 15:34] LABS: LDL Cholesterol 116 mg/dL (< 100)
[2024-11-26 16:24] LABS: Creatinine, Urine 185.46 mg/dL (30.0-125.0)
== END | disposition home or self-care (01) ==
LOC: LAB 09:30
PROVIDERS: ATTEND Internal Medicine
DX: E11.65 Type 2 diabetes mellitus with hyperglycemia (principal); J06.9 Acute upper respiratory infection, unspecified; N39.0 Urinary tract infection, site not specified; M19.90 Unspecified osteoarthritis, unspecified site
CPT/HCPCS: 36415; 80053; 80061; 81001; 82043; 82570; 83036; 84439; 84443; 85007; 85027

== ENCOUNTER → 2025-01-23 | Outpatient (CLI) | payer MEDICAID ==
[2025-01-23 14:55] LABS: Urine Bacteria None Seen /hpf (None Seen)
[2025-01-23 15:18] LABS: Urine Blood Negative /uL (Negative); Urine Clarity Clear (Clear); Urine Color Light-Yellow (Yellow); Urine Protein, UAD Negative (Negative); Urine Specific Gravity 1.024 (1.001-1.035); Urine Squamous Epithelial Cell FEW /hpf (<5); Urine Urobilinogen Normal (Negative); Urine WBC 1 /HPF (0-5); Urine pH 5.5 (5.0-9.0)
[2025-01-23 15:30] LABS: Chloride 105 mmol/L (98-107); Potassium 3.8 mmol/L (3.5-5.1); Sodium 141 mmol/L (136-145)
[2025-01-23 15:31] LABS: Anion Gap 9 (5-15); Calcium 9.9 mg/dL (8.7-10.4); Carbon Dioxide 27 mmol/L (20-31)
[2025-01-23 15:36] LABS: BUN/Creatinine Ratio 17.5 (10.0-20.0); Blood Urea Nitrogen 18 mg/dL (9-23); Glucose 236 mg/dL (74-106)
== END | disposition home or self-care (01) ==
LOC: LAB 14:41
PROVIDERS: ATTEND Internal Medicine
DX: I11.9 Hypertensive heart disease without heart failure (principal); E11.43 Type 2 diabetes mellitus with diabetic autonomic (poly)neuropathy
CPT/HCPCS: 36415; 80048; 81001; 83036

== ENCOUNTER → 2025-01-24 | Outpatient (CLI) | payer MEDICAID ==
[2025-01-24 09:25] LABS: Basophils # (auto) 0.1 10 ^3/uL (0-0.2); Basophils % (auto) 0.9 % (0.0-2.0); Eosinophils # (auto) 0.8 10 ^3/uL (0-0.8); Eosinophils % (auto) 10.1 % (0.0-7.0); Hematocrit 41.2 % (36.0-46.0); Lymphocytes # (auto) 1.9 10 ^3/uL (0.4-5.4); Lymphocytes % (auto) 25.5 % (10.0-50.0); Mean Corpuscular Volume 88.2 fL (80.0-100.0); Monocytes # (auto) 0.7 10 ^3/uL (0-1.3); Monocytes % (auto) 8.8 % (0.0-12.0); Neutrophils # (auto) 4.1 10 ^3/uL (1.6-8.6); Neutrophils % (auto) 54.7 % (37.0-80.0); Platelet Count (auto) 215 10^3/uL (140-450); Red Blood Cells 4.67 10^6/uL (4.0-5.20); Red Cell Distribution Width 16.2 % (11.8-14.3); White Blood Cell 7.4 10^3/uL (4.4-10.8)
[2025-01-24 09:47] LABS: Alanine Aminotransferase 27 U/L (7-40); Anion Gap 9 (5-15); Aspartate Aminotransferase 22 U/L (13-40); BUN/Creatinine Ratio 21.7 (10.0-20.0); Blood Urea Nitrogen 20 mg/dL (9-23); Carbon Dioxide 27 mmol/L (20-31); Chloride 105 mmol/L (98-107); LDL Cholesterol 57 mg/dL (< 100); Sodium 141 mmol/L (136-145); Total Protein 7.2 g/dL (5.7-8.2); Triglycerides 84 mg/dL (< 150)
[2025-01-24 09:48] LABS: Albumin 4.4 g/dL (3.2-4.8); Alkaline Phosphatase 155 U/L (46-116); Bilirubin, Total 1.3 mg/dL (0.2-1.0); Cholesterol 110 mg/dL (< 200); Glucose 263 mg/dL (74-106); HDL Cholesterol 38 mg/dL (40-59)
== END | disposition home or self-care (01) ==
LOC: LAB 09:07
PROVIDERS: ATTEND Internal Medicine
DX: I12.9 Hypertensive chronic kidney disease with stage 1 through stage 4 chronic kidney disease, or unspecified chronic kidney disease (principal); E11.22 Type 2 diabetes mellitus with diabetic chronic kidney disease; N18.2 Chronic kidney disease, stage 2 (mild); E78.2 Mixed hyperlipidemia; R74.8 Abnormal levels of other serum enzymes; R30.0 Dysuria
CPT/HCPCS: 36415; 80053; 80061; 83036; 85025

== ENCOUNTER → 2025-02-05 | Outpatient (CLI) | payer MEDICAID ==
[2025-02-05 13:19] LABS: Urine Bacteria FEW /hpf (None Seen); Urine Blood 1+ /uL (Negative); Urine Clarity Turbid (Clear); Urine Color Yellow (Yellow); Urine Mucus FEW (None Seen); Urine Protein, UAD Negative (Negative); Urine Specific Gravity 1.017 (1.001-1.035); Urine Squamous Epithelial Cell MOD /hpf (<5); Urine Urobilinogen Normal (Negative); Urine WBC 13 /HPF (0-5)
== END | disposition home or self-care (01) ==
LOC: LAB 12:25
PROVIDERS: ATTEND Urology
DX: R32 Unspecified urinary incontinence (principal)
CPT/HCPCS: 81001; 87086

== ENCOUNTER 2025-03-17 09:16 | Inpatient (IN) | payer MEDICAID ==
[~2025-03-17] VITALS: Ht 160 cm; Wt 90.8 kg
[2025-03-17 09:41] LABS: Urine Bacteria None Seen /hpf (None Seen)
--- NOTE | 2025-03-17 09:43 | ED.PDOC ---
History of Present Illness HPI Comments 59-year-old female who is Korean-speaking presents to the ER with prior medical history of hypertension, diabetes, CVA, high lipids; surgical history of cholecystectomy, hernia repair, , hysterectomy, pacemaker and the chief complaint of flank pain. Patient reports on having pelvic pain all the time with a recent flank pain for the past two weeks which is stabbing like pain. Patient notes the during the months two weeks the pain will come and go currently more consistent with nausea or vomiting. Denies chills, fever, N/V/D, SOB, CP. No other associated symptoms, modifiers, recent injuries or sick contacts present at this time. Chief Complaint: Flank Pain Time Seen by MD: 09:30 Primary Care Provider: CHERI Reviewed Notes: Nurses Notes, Medications, Allergies Allergies: Coded Allergies: NO KNOWN ALLERGIES (Unverified , 09/05/24) Home Meds Active Scripts Continuous Glucose System Sens (Freestyle Sienna 3 Plus/Se) 1 Kit Kit, KIT SUBCUT TID PRN, #1 0 Refills use fasting and pre-meals Prov:AP NORWOOD 09/09/24 Empagliflozin (Jardiance) 10 Mg Tab, 10 MG PO DAILY for 30 Days, #30 TAB Prov:AP NORWOOD 09/09/24 Metformin Hydrochloride (METFORMIN HCL ER) 500 Mg Tab, 500 MG PO BID for 30 Days, #60 TAB Prov:AP NORWOOD 09/09/24 Atorvastatin Calcium (ATORVASTATIN CALCIUM) 20 Mg Tab, 40 MG PO HS for 30 Days, #30 TAB Prov:AP NORWOOD 09/09/24 Aspirin (Aspirin Low Dose) 81 Mg Tab, 81 MG PO DAILY for 30 Days, #30 TAB Prov:AP NORWOOD 09/09/24 Information Source: Patient Mode of Arrival: Ambulatory Severity: Moderate Timing: Weeks Duration: Since onset Prehospital treatment: None Past Medical History PAST MEDICAL HISTORY: CVA, DM, High Lipids, HTN Surgical History: Cholecystectomy, , Hernia Repair, Hysterectomy, Pacemaker 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 BUS 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 MANAGER History Family History Family History: Reviewed,noncontributory to illness, Unknown Social History Smoker: Non-Smoker Alcohol: Denies ETOH Use Drugs: Denies Drug Use Lives In: Home Constitutional: denies: chills, diaphoresis, fatigue, fever, malaise, sweats, weakness, others EENTM: denies: blurred vision, double vision, ear bleeding, ear discharge, ear drainage, ear pain, ear ringing, eye pain, eye redness, hearing loss, mouth pain, mouth swelling, nasal discharge, nose bleeding, nose congestion, nose pain, photophobia, tearing, throat pain, throat swelling, voice changes, others Respiratory: denies: cough, hemoptysis, orthopnea, SOB at rest, shortness of breath, SOB with excertion, stridor, wheezing, others Cardiovascular: denies: chest pain, dizzy spells, diaphoresis, Dyspnea on exertion, edema, irregular heart beat, left arm pain, lightheadedness, palpitations, PND, syncope, others Gastrointestinal: reports: nausea, vomiting; denies: abdomen distended, abdominal pain, blood streaked bowels, constipated, diarrhea, dysphagia, difficulty swallowing, hematemesis, melena, poor appetite, poor fluid intake, rectal bleeding, rectal pain, others Genitourinary: reports: flank pain; denies: abnormal vagina bleeding, burning, dyspareunia, dysuria, frequency, hematuria, incontinence, pain, , vagina discharge, urgency, others Neurological: denies: dizziness, fainting, headache, left sided numbness, left sided weakness, numbness, paresthesia, pre-existing deficit, right sided numbness, right sided weakness, seizure, speech problems, tingling, tremors, weakness, others Musculoskeletal: denies: back pain, gout, joint pain, joint swelling, muscle pain, muscle stiffness, neck pain, others Integumetry: denies: bruises, change in color, change in hair/nails, dryness, laceration, lesions, lumps, rash, wounds, others Allergic/Immunocompromised: denies: Difficulty Healing, Frequent Infections, Hives, Itching, others Hematologic/Lymphatic: denies: anemia, blood clots, easy bleeding, easy bruising, swollen glands, others Endocrine: denies: excessive hunger, excessive sweating, excessive thirst, excessive urination, flushing, intolerance to cold, intolerance to heat, unexplained weight gain, unexplained weight loss, others Psychiatric: denies: anxiety, bipolar disorder, depression, hopeless, panic disorder, schizophrenia, sleepless, suicidal, others All Other Systems: Reviewed and Negative Physical Exam General Appearance: No Apparent Distress, Normal HEENT: Normal ENT Inspection, Pharynx Normal, TMs Normal Neck: Full Range of Motion, Non-Tender, Normal, Normal Inspection Respiratory: Chest Non-Tender, Lungs Clear, No Accessory Muscle Use, No Respiratory Distress, Normal Breath Sounds Cardiovascular: No Edema, No JVD, No Murmur, No Gallop, Normal Peripheral Pulses, Regular Rate/Rhythm Breast Exam: Deferred Gastrointestinal: No Organomegaly, Non Tender, No Pulsatile Mass, Normal Bowel Sounds, Soft Genitalia: Deferred Pelvic: Deferred Rectal: Deferred Extremities: No calf tenderness, Normal capillary refill, Normal inspection, Normal range of motion, Non-tender, No pedal edema Musculoskeletal : Apperance: Normal Neurologic: Alert, splunk dashboard developer II-XII nml as Tested, No Motor Deficits, Normal Affect, Normal Mood, No Sensory Deficits Cerebellar Function: Normal Reflexes: Normal Skin: Dry, Normal Color, Warm Lymphatic: No Adenopathy Was a procedure done? Was a procedure done?: No Differential Dx Considerations may include: UTI, uncontrolled diabetes, infectious etiology, electrolyte abnormality, acute appendicitis, gastritis X-Ray, Labs, Meds, VS Vital Signs Date Time Temp Pulse Resp B/P (MAP) Pulse Ox O2 Delivery O2 Flow Rate FiO2 03/17/25 11:25 90 18 137/79 (98) 95 03/17/25 09:56 96 18 97 Room Air* 0 21 03/17/25 09:25 97.5 96 18 152/84 (106) 97 97.5 03/17/25 09:25 97.5 96 18 152/84 (106) 97 97.5 Lab Test 03/17/25 09:49 03/17/25 09:28 Range/Units White Blood Count 7.6 4.4-10.8 10^3/uL Red Blood Count 4.72 4.0-5.20 10^6/uL Hemoglobin 14.0 12.2-16.2 g/dL Hematocrit 42.0 36.0-46.0 % Mean Corpuscular Volume 88.9 80.0-100.0 fL Mean Corpuscular Hemoglobin 29.7 28.0-32.0 pg Mean Corpuscular Hemoglobin Concent 33.4 32.0-36.0 g/dL Red Cell Distribution Width 14.9 H 11.8-14.3 % Platelet Count 196 140-450 10^3/uL Mean Platelet Volume 9.6 6.9-10.8 fL Neutrophils (%) (Auto) 61.0 37.0-80.0 % Lymphocytes (%) (Auto) 20.8 10.0-50.0 % Monocytes (%) (Auto) 6.2 0.0-12.0 % Eosinophils (%) (Auto) 11.1 H 0.0-7.0 % Basophils (%) (Auto) 0.9 0.0-2.0 % Neutrophils # (Auto) 4.6 1.6-8.6 10 ^3/uL Lymphocytes # (Auto) 1.6 0.4-5.4 10 ^3/uL Monocytes # (Auto) 0.5 0-1.3 10 ^3/uL Eosinophils # (Auto) 0.8 0-0.8 10 ^3/uL Basophils # (Auto) 0.1 0-0.2 10 ^3/uL Nucleated Red Blood Cells 0.0 % Sodium Level 145 136-145 mmol/L Potassium Level 3.8 3.5-5.1 mmol/L Chloride Level 109 H 98-107 mmol/L Carbon Dioxide Level 25 20-31 mmol/L Anion Gap 11 5-15 Blood Urea Nitrogen 19 9-23 mg/dL Creatinine 0.91 0.550-1.02 mg/dL Glomerular Filtration Rate Calc 73 >90 mL/min BUN/Creatinine Ratio 20.9 H 10.0-20.0 Serum Glucose 260 H 74-106 mg/dL Calcium Level 10.0 8.7-10.4 mg/dL Urine Color Yellow Yellow Urine Clarity Clear Clear Urine pH 6.0 5.0-9.0 Urine Specific [place] 1.031 1.001-1.035 Urine Protein Trace H Negative Urine Ketones Negative Negative Urine Blood Trace H Negative /uL Urine Nitrite Negative Negative Urine Bilirubin Negative Negative Urine Urobilinogen 2 H Negative mg/dL Urine Leukocyte Esterase 1+ Negative /uL Urine RBC 12 0 - 4 /hpf Urine Microscopic WBC 3 0-5 /HPF Urine Squamous Epithelial Cells Few <5 /hpf Urine Bacteria None seen None Seen /hpf Urine Mucus Few None Seen Urine Glucose 3+ H Normal mg/dL Time of 1ST Reevaluation: 10:00 Reevaluation 1ST: Unchanged Patient Education/Counseling: Diagnosis, Treatment, Prognosis Family Education/Counseling: No Family Present Departure 1 Departure Time of Disposition: 12:00 (Patient presented with abdominal pain that was concerning for possible appendicits, gastritis, cholecystitis, colitis, gastroenteritis, sbo, or orther possible surgical emergency. Data: 1. I ordered and reviewed the result of at least 3 labs including a CBC, BMP, and Urinalysis. 2. I independently interpreted the following tests: CT Abdoment and Pelvis is concerning for benign abdomen .Risk:This patient has a high risk of morbidity due to further diagnostic testing or treatment and may suffer from an acute abdominal process disorder. Workup reveals uncontrolled abdominal pain and patient should be admitted for further workup. and possible expert consultation. ) Impression: Primary Impression: Intractable abdominal pain Additional Impression: Projectile vomiting with nausea Disposition: ADMITTED INPATIENT Admit to: Med Surg Condition: Serious Critical Care Note Critical Care Time?: Yes Critical care comment: Intractable abdominal pain Authorized and Performed by: Marcos Martinez MD Total critical care time: Approximately 32 minutes Due to a high probability of clinically significant, life threatening deterioration, the patient required my highest level of preparedness to intervene emergently and I personally spent this critical care time directly and personally managing the patient. This critical care time included obtaining a history; examining the patient; pulse oximetry; ordering and review of studies; arranging urgent treatment with development of a management plan; evaluation of patient's response to treatment; frequent reassessment; and, discussions with other providers. This critical care time was performed to assess and manage the high probability of imminent, life-threatening deterioration that could result in multi-organ failure. It was exclusive of separately billable procedures and treating other patients and teaching time. Please see my other sections and the rest of the note for further information on patient assessment and treatment. Stability Stability form required: No I personally scribed for MARCOS MARTINEZ MD ([email or web address]) on 03/17/25 at 09:43. Electronically submitted by Luis Felipe uDrham ([email or web address]). MARCOS MARTINEZ MD Mar 17, 2025 09:43
[2025-03-17 09:48] LABS: Urine Blood TRACE /uL (Negative); Urine Clarity Clear (Clear); Urine Color Yellow (Yellow); Urine Mucus FEW (None Seen); Urine Protein, UAD TRACE (Negative); Urine Specific Gravity 1.031 (1.001-1.035); Urine Squamous Epithelial Cell FEW /hpf (<5); Urine Urobilinogen 2 mg/dL (Negative); Urine WBC 3 /HPF (0-5)
[2025-03-17 09:56] VITALS: PULSE 96; RESP 18; O2SAT 97
[2025-03-17 10:06] LABS: Basophils # (auto) 0.1 10 ^3/uL (0-0.2); Basophils % (auto) 0.9 % (0.0-2.0); Eosinophils # (auto) 0.8 10 ^3/uL (0-0.8); Eosinophils % (auto) 11.1 % (0.0-7.0); Lymphocytes # (auto) 1.6 10 ^3/uL (0.4-5.4); Lymphocytes % (auto) 20.8 % (10.0-50.0); Mean Corpuscular Hemoglobin 29.7 pg (28.0-32.0); Mean Corpuscular Hgb Conc. 33.4 g/dL (32.0-36.0); Mean Corpuscular Volume 88.9 fL (80.0-100.0); Monocytes # (auto) 0.5 10 ^3/uL (0-1.3); Monocytes % (auto) 6.2 % (0.0-12.0); Neutrophils # (auto) 4.6 10 ^3/uL (1.6-8.6); Platelet Count (auto) 196 10^3/uL (140-450); Red Blood Cells 4.72 10^6/uL (4.0-5.20); Red Cell Distribution Width 14.9 % (11.8-14.3); White Blood Cell 7.6 10^3/uL (4.4-10.8)
[2025-03-17 10:16] LABS: Potassium 3.8 mmol/L (3.5-5.1); Sodium 145 mmol/L (136-145)
[2025-03-17 10:17] LABS: Anion Gap 11 (5-15); Carbon Dioxide 25 mmol/L (20-31)
[2025-03-17 10:22] LABS: BUN/Creatinine Ratio 20.9 (10.0-20.0); Blood Urea Nitrogen 19 mg/dL (9-23)
[2025-03-17 10:23] LABS: Chloride 109 mmol/L (98-107); Glucose 260 mg/dL (74-106)
--- NOTE | 2025-03-17 11:44 | DVH ---
Exam: CT CT AB PEL WO CON-NO ORAL OR IV History: right flank pain Comparison Study: None Technique: Multidetector spiral CT of the abdomen was performed from lung bases to pubic symphysis. I maging was performed without IV contrast. Axial, coronal and sagittal multiplanar reformats were obta ined from the axial data set by the technologist. Radiation Dose : 1. Abdomen/Pelvis: CTDIvol 16.63 mGy, DLP 876.08 mGy*cm. Findings: Evaluation of solid organs is limited due to lack of intravenous contrast use. Lung Bases: No acute or significant lung base finding. Normal heart size. No pleural or pericardial effusion. Liver: The liver is normal in size. No focal lesions. Gallbladder and Biliary Tree: Decompressed or surgically absent. Spleen: Unremarkable Pancreas: The pancreas is grossly normal in appearance. Adrenal Glands: Unremarkable Kidneys: Kidneys are grossly normal without calculi or hydronephrosis. Bladder: Grossly unremarkable for degree of distention. Bowel: Mildly distended stomach. Moderate volume colonic stool. Diverticulosis. The appendix is not v isualized; however, no secondary findings of acute appendicitis identified. Ascites: Absent Lymphadenopathy: No mesenteric, retroperitoneal or periportal lymphadenopathy. Abdominal Wall and Mesentery: Unremarkable. Vasculature: The visualized abdominal aorta is normal in size and caliber. Evaluation of abdominal a nd pelvic vessels is limited due to lack of intravenous contrast. Pelvic Organs: The uterus is surgically absent. Musculoskeletal: No aggressive focal bony lesions, acute fractures or dislocation. IMPRESSION: Mild stomach distention, moderate colonic stool, diverticulosis. No acute findings.
[2025-03-17] MEDS: SODIUM CHLORIDE 0.9% 1,000 ML IV ONE ×2 (12:51→15:44)
[2025-03-17] MEDS: ONDANSETRON HCL 4 MG/2 ML VIAL IV ONE (13:13)
[2025-03-17] MEDS: MORPHINE SULFATE 4 MG/ML SYR/VIAL IV ONE (13:14)
[2025-03-17] MEDS ORDERED: LOSA-534 PO (14:55)
[2025-03-17] MEDS ORDERED: HYDR25TA5 PO (14:55)
[2025-03-17] MEDS ORDERED: DOCUSATE SOD 100 MG CAP PO PRN (15:00)
[2025-03-17] MEDS ORDERED: ONDANSETRON HCL 4 MG/2 ML VIAL IV PRN (15:00)
[2025-03-17] MEDS ORDERED: MORPHINE SULFATE INJ 2 MG/ml SYRG IV PRN (15:00)
[2025-03-17] MEDS ORDERED: DEXTROSE (50%) 50ML SYRG IV PRN (15:00)
--- NOTE | 2025-03-17 15:16 | DVHHP2 ---
History of Present Illness Reason for Visit: Flank pain History of Present Illness Izzy Cali is a 59-year-old female with past medial history of hypertension, hyperlipidemia, diabetes, and CVA, who came in with complaints of flank pain and pelvic pain. Patient states she has been experiencing pelvic pain for 3 months, and flank pain for about 2 months. She was seen by her primary care provider today who ordered an ultrasound and x-rays for her complaints. She was also told to go to the ER if the pain becomes too severe. She was able to complete the ultrasound but not get the x-rays completed due to the pain increasing and she came to the hospital. 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: CVA Endocrine: Diabetes Past Surgical History: Cholecystectomy, (x 1), Hysterectomy, Hernia Repair (x 2), Tonsillectomy Smoke: No ALCOHOL: none Drugs: None Lives: with Family Domestic Violence: Neg Review of Systems Constitutional: No: Fever, Chills, Sweats, Weakness, Malaise, Other Eyes: No: Pain, Vision change, Conjunctivae inflammation, Eyelid inflammation, Other, Redness ENT: No: Ear pain, Ear discharge, Nose pain, Nose discharge, Nose congestion, Mouth pain, Mouth swelling, Throat pain, Throat swelling, Other Respiratory: No: Cough, Dry, Shortness of breath, SOB with excertion, Wheezing, Hemoptysis, Pleuritic Pain, Sputum, Wheezing, Other Cardiovascular: No: Chest Pain, Palpitations, Orthopnea, Paroxysmal Noc. Dyspnea, Edema, Lt Headedness, Other Gastrointestinal: Abdominal Pain; No: Nausea, Vomiting, Diarrhea, Constipation, Melena, Hematochezia, Other Genitourinary: No Dysuria, No Frequency, No Incontinence, No Hematuria, No Retention; Other (right groin pain) Musculoskeletal: back pain (flank pain); No: other, neck pain, shoulder pain, arm pain, hand pain, leg pain, foot pain Skin: No: Rash, Lesions, Jaundice, Bruising, Other Neurological: No: Weakness, Numbness, Incoordination, Change in speech, Confusion, Seizures, Other Allergies: Coded Allergies: NO KNOWN ALLERGIES (Unverified , 09/05/24) Medications Current Medications Medications Dose Ordered Sig/Clem Route Start Time Stop Time Status Last Admin Dose Admin Acetaminophen/ Hydrocodone Bitart 1 tab Q4HP PRN PO 03/17/25 15:00 UNV Exam Vital Signs Vital Signs Date Time Temp Pulse Resp B/P (MAP) Pulse Ox O2 Delivery O2 Flow Rate FiO2 03/17/25 13:44 81 14 119/3 03/17/25 11:25 95 03/17/25 09:56 Room Air* 0 21 03/17/25 09:25 97.5 97.5 General Appearance: Alert, Oriented X3, Cooperative, mild distress HEENT: Atraumatic, PERRLA Respiratory: Clear to auscultation, Normal air movement Cardiovascular: Regular rate, Normal S1, Normal S2 Abdominal: Normal bowel sounds, Soft, No tenderness, No hepatospenomegaly Extremities: No clubbing, No cyanosis, No edema Skin: No rashes, No breakdown, No significant lesion Neuro: Normal speech, Normal tone, Other (decreased strength and ROM in right leg due to pain) Psych/Mental Status: Mental status NL, Mood NL Labs/Xrays Labs Test 03/17/25 09:49 03/17/25 09:28 Range/Units White Blood Count 7.6 4.4-10.8 10^3/uL Red Blood Count 4.72 4.0-5.20 10^6/uL Hemoglobin 14.0 12.2-16.2 g/dL Hematocrit 42.0 36.0-46.0 % Mean Corpuscular Volume 88.9 80.0-100.0 fL Mean Corpuscular Hemoglobin 29.7 28.0-32.0 pg Mean Corpuscular Hemoglobin Concent 33.4 32.0-36.0 g/dL Red Cell Distribution Width 14.9 H 11.8-14.3 % Platelet Count 196 140-450 10^3/uL Mean Platelet Volume 9.6 6.9-10.8 fL Neutrophils (%) (Auto) 61.0 37.0-80.0 % Lymphocytes (%) (Auto) 20.8 10.0-50.0 % Monocytes (%) (Auto) 6.2 0.0-12.0 % Eosinophils (%) (Auto) 11.1 H 0.0-7.0 % Basophils (%) (Auto) 0.9 0.0-2.0 % Neutrophils # (Auto) 4.6 1.6-8.6 10 ^3/uL Lymphocytes # (Auto) 1.6 0.4-5.4 10 ^3/uL Monocytes # (Auto) 0.5 0-1.3 10 ^3/uL Eosinophils # (Auto) 0.8 0-0.8 10 ^3/uL Basophils # (Auto) 0.1 0-0.2 10 ^3/uL Nucleated Red Blood Cells 0.0 % Sodium Level 145 136-145 mmol/L Potassium Level 3.8 3.5-5.1 mmol/L Chloride Level 109 H 98-107 mmol/L Carbon Dioxide Level 25 20-31 mmol/L Anion Gap 11 5-15 Blood Urea Nitrogen 19 9-23 mg/dL Creatinine 0.91 0.550-1.02 mg/dL Glomerular Filtration Rate Calc 73 >90 mL/min BUN/Creatinine Ratio 20.9 H 10.0-20.0 Serum Glucose 260 H 74-106 mg/dL Calcium Level 10.0 8.7-10.4 mg/dL Urine Color Yellow Yellow Urine Clarity Clear Clear Urine pH 6.0 5.0-9.0 Urine Specific [place] 1.031 1.001-1.035 Urine Protein Trace H Negative Urine Ketones Negative Negative Urine Blood Trace H Negative /uL Urine Nitrite Negative Negative Urine Bilirubin Negative Negative Urine Urobilinogen 2 H Negative mg/dL Urine Leukocyte Esterase 1+ Negative /uL Urine RBC 12 0 - 4 /hpf Urine Microscopic WBC 3 0-5 /HPF Urine Squamous Epithelial Cells Few <5 /hpf Urine Bacteria None seen None Seen /hpf Urine Mucus Few None Seen Urine Glucose 3+ H Normal mg/dL Exam: CT CT AB PEL WO CON-NO ORAL OR IV Findings: Evaluation of solid organs is limited due to lack of intravenous contrast use. Lung Bases: No acute or significant lung base finding. Normal heart size. No pleural or pericardial effusion. Liver: The liver is normal in size. No focal lesions. Gallbladder and Biliary Tree: Decompressed or surgically absent. Spleen: Unremarkable Pancreas: The pancreas is grossly normal in appearance. Adrenal Glands: Unremarkable Kidneys: Kidneys are grossly normal without calculi or hydronephrosis. Bladder: Grossly unremarkable for degree of distention. Bowel: Mildly distended stomach. Moderate volume colonic stool. Diverticulosis. The appendix is not visualized; however, no secondary findings of acute appendicitis identified. Ascites: Absent Lymphadenopathy: No mesenteric, retroperitoneal or periportal lymphadenopathy. Abdominal Wall and Mesentery: Unremarkable. Vasculature: The visualized abdominal aorta is normal in size and caliber. Evaluation of abdominal and pelvic vessels is limited due to lack of intravenous contrast. Pelvic Organs: The uterus is surgically absent. Musculoskeletal: No aggressive focal bony lesions, acute fractures or dislocation. IMPRESSION: Mild stomach distention, moderate colonic stool, diverticulosis. No acute findings. Assessment/Plan Assessment/Plan Assessment: Intractable abdominal pain, Diverticulosis, Constipation, Hypertension, Uncontrolled diabetes, Hyperlipidemia, Plan: Admit to Med-Surg, IV hydration, Pain management, Laxative, Physical therapy evaluation, Accu checks Q AC&HS with sliding scale, A1c, Home mediations reconciled, Plan discussed with: Patient My Orders Orders - IESHA PEDRAZA Procedure Category Date Status Time Admit ADMIT 03/17/25 Transmitted 14:47 Code Status CODE 03/17/25 Transmitted 14:47 Hydrocodone-Acet PHA 03/17/25 Transmitted 5/325mg Tab (Roxana 15:00 Ondansetron Hcl PHA 03/17/25 Transmitted (Zofran) 15:00 Docusate Sodium PHA 03/17/25 Transmitted Capsule (Colace 15:00 Complete Blood Count LAB 03/18/25 Verified 04:00 Comprehensive LAB 03/18/25 Verified Metabolic Panel 04:00 Pt Request For Service PT 03/17/25 Logged 14:47 Condition: Serious GORGE 03/17/25 Transmitted 14:47 Acetaminophen Tablet PHA 03/17/25 Transmitted (Tylenol Tablet) 15:00 Clear Liq Diet DIET 03/17/25 Transmitted Dinner Morphine Sulfate PHA 03/17/25 Transmitted Injection 15:00 Glucose Blood PHA 03/17/25 Transmitted (Accu-Chek Comfort 17:00 Bedtime Insulin Scale PHA 03/17/25 Transmitted 22:00 Moderate Insulin Ss PHA 03/17/25 Transmitted 17:00 Dextrose 50% Syringe PHA 03/17/25 Transmitted 15:00 Aspirin Enteric PHA 03/18/25 Transmitted Coated Tablet 10:00 Atorvastatin (Lipitor) PHA 03/17/25 Transmitted 22:00 Empagliflozin PHA 03/18/25 Transmitted (Jardiance) 10:00 Date of Service: Mar 17, 2025 Billing Provider: IESHA PEDRAZA Common Visit Codes: [id number] INP/OBS CARE (MOD) IESHA PEDRAZA Mar 17, 2025 15:16
[2025-03-17] MEDS: ACCU-CHEK COMFORT CURVE STRIP VI SCH (16:41)
[2025-03-17] MEDS: InsuLIN REG 1unit/0.01ml Soln (100units/ml) SC SCH ×2 (16:42→21:56)
[2025-03-17] MEDS: LACTULOSE 20Gm/30ML SOLN PO ONE (16:43)
[2025-03-17] MEDS: HYDROcodone-ACET 5/325MG TAB PO PRN (20:07)
[2025-03-17 20:08] VITALS: BP 128/72; PULSE 94; RESP 18; TEMP 97.6; O2SAT 96
[2025-03-17] MEDS: ATORVASTATIN 20 MG TAB PO SCH (21:51)
[2025-03-18 04:01] LABS: Basophils # (auto) 0 10 ^3/uL (0-0.2); Basophils % (auto) 0.7 % (0.0-2.0); Eosinophils # (auto) 0.8 10 ^3/uL (0-0.8); Eosinophils % (auto) 11.7 % (0.0-7.0); Hematocrit 37.7 % (36.0-46.0); Hemoglobin 12.7 g/dL (12.2-16.2); Lymphocytes # (auto) 1.8 10 ^3/uL (0.4-5.4); Lymphocytes % (auto) 28.2 % (10.0-50.0); Mean Corpuscular Hgb Conc. 33.7 g/dL (32.0-36.0); Mean Corpuscular Volume 89.1 fL (80.0-100.0); Monocytes # (auto) 0.5 10 ^3/uL (0-1.3); Monocytes % (auto) 7.8 % (0.0-12.0); Neutrophils # (auto) 3.3 10 ^3/uL (1.6-8.6); Neutrophils % (auto) 51.6 % (37.0-80.0); Nucleated Red Blood Cells % 0.1 %; Platelet Count (auto) 175 10^3/uL (140-450); Red Blood Cells 4.23 10^6/uL (4.0-5.20); Red Cell Distribution Width 15.3 % (11.8-14.3); White Blood Cell 6.4 10^3/uL (4.4-10.8)
[2025-03-18 04:16] LABS: Alanine Aminotransferase 22 U/L (7-40); Albumin 3.7 g/dL (3.2-4.8); Anion Gap 9 (5-15); BUN/Creatinine Ratio 19.4 (10.0-20.0); Blood Urea Nitrogen 13 mg/dL (9-23); Carbon Dioxide 25 mmol/L (20-31); Potassium 3.7 mmol/L (3.5-5.1); Sodium 144 mmol/L (136-145); Total Protein 6.2 g/dL (5.7-8.2)
[2025-03-18 04:17] LABS: Bilirubin, Total 1.1 mg/dL (0.2-1.0)
[2025-03-18 04:29] LABS: Alkaline Phosphatase 123 U/L (46-116); Calcium 8.6 mg/dL (8.7-10.4); Chloride 110 mmol/L (98-107); Glucose 114 mg/dL (74-106)
[2025-03-18 05:00] VITALS: BP 108/68; PULSE 86; RESP 15; O2SAT 93
[2025-03-18 05:03] LABS: Aspartate Aminotransferase 30 U/L (13-40)
[2025-03-18] MEDS: ASPirin-EC 81 mg tab PO SCH (08:36)
[2025-03-18] MEDS: EMPAGLIFLOZIN 10 MG TAB PO SCH (08:36)
[2025-03-18] MEDS: LOSARTAN POTASSIUM 50 MG TAB PO SCH (08:36)
[2025-03-18] MEDS: hydroCHLOROthiazide 25 MG TAB PO SCH (08:37)
[2025-03-18 08:56] VITALS: PULSE 98; RESP 16; O2SAT 95
[2025-03-18 13:00] VITALS: BP 118/71; PULSE 95; RESP 19; TEMP 97.8; O2SAT 99
--- NOTE | 2025-03-18 16:25 | DVHPN2 ---
Subjective In bed with some pain Reviewed: H&P, Labs Changes from previous H/P or p: No Changes Eyes: No Pain, No Vision change, No Conjunctivae inflammation, No Eyelid inflammation, No Other, No Redness ENT: No Ear pain, No Ear discharge, No Nose pain, No Nose discharge, No Nose congestion, No Mouth pain, No Mouth swelling, No Throat pain, No Throat swelling, No Other Cardiovascular: No Chest Pain, No Palpitations, No Orthopnea, No Paroxysmal Noc. Dyspnea, No Edema, No Lt Headedness, No Other Respiratory: No Cough, No Dry, No Shortness of breath, No SOB with excertion, No Wheezing, No Hemoptysis, No Pleuritic Pain, No Sputum, No Other Gastrointestinal: No Nausea, No Vomiting; Abdominal Pain; No Diarrhea, No Constipation, No Melena, No Hematochezia, No Other Genitourinary: No Dysuria, No Frequency, No Incontinence, No Hematuria, No Retention; Other (right groin pain) Musculoskeletal: No other, No neck pain, No shoulder pain, No arm pain; back pain (flank pain); No hand pain, No leg pain, No foot pain Skin: No Rash, No Lesions, No Jaundice, No Bruising, No Other Objective Vitals Vital Signs Date Time Temp Pulse Resp B/P (MAP) Pulse Ox O2 Delivery O2 Flow Rate FiO2 03/18/25 13:00 97.8 95 19 118/71 (87) 99 97.8 03/18/25 08:56 Room Air* 0 21 General Appearance: Alert, Oriented X3 Lungs: Clear to auscultation Cardiovascular: Regular rate, Normal S1, Normal S2 Medications Current Medications Medications Dose Ordered Sig/Clem Route Start Time Stop Time Status Last Admin Dose Admin Acetaminophen/ Hydrocodone Bitart 1 tab Q4HP PRN PO 03/17/25 15:00 03/17/25 20:07 1 TAB Ondansetron HCl 4 mg Q4HP PRN IV 03/17/25 15:00 Docusate Sodium 100 mg BIDPRN PRN PO 03/17/25 15:00 Acetaminophen 650 mg Q6HP PRN PO 03/17/25 15:00 Morphine Sulfate 2 mg Q4HPRN PRN IV 03/17/25 15:00 Diagnostic Test (Pha) 1 strip ACHS 03/17/25 17:00 03/18/25 11:40 1 STRIP Insulin Human Regular HS SC 03/17/25 22:00 03/17/25 21:56 4 UNITS Insulin Human Regular AC SC 03/17/25 17:00 03/18/25 11:44 2 UNITS Dextrose 50 ml UD PRN IV 03/17/25 15:00 Aspirin 81 mg DAILY PO 03/18/25 10:00 03/18/25 08:36 81 MG Atorvastatin Calcium 40 mg HS PO 03/17/25 22:00 03/17/25 21:51 40 MG Empaglifozin 10 mg DAILY PO 03/18/25 10:00 03/18/25 08:36 10 MG Hydrochlorothiazide 25 mg DAILY PO 03/18/25 10:00 03/18/25 08:37 25 MG Losartan Potassium 50 mg DAILY PO 03/18/25 10:00 03/18/25 08:36 50 MG Laboratory Results Laboratory Tests 03/18/25 03:36 Chemistry Test 03/18/25 03:36 Albumin 3.7 g/dL (3.2-4.8) Calcium Level 8.6 mg/dL (8.7-10.4) L Total Protein 6.2 g/dL (5.7-8.2) LFT Test 03/18/25 03:36 Alanine Aminotransferase (ALT) 22 U/L (7-40) Alkaline Phosphatase 123 U/L (46-116) H Aspartate Amino Transferase (AST) 30 U/L (13-40) Total Bilirubin 1.1 mg/dL (0.2-1.0) H HgA1c, TSH Test 03/18/25 03:36 Hemoglobin A1c 9.0 % A1C (<5.7) H Urinalysis Test 03/17/25 09:28 Urine Color Yellow (Yellow) Urine Clarity Clear (Clear) Urine pH 6.0 (5.0-9.0) Urine Specific [place] 1.031 (1.001-1.035) Urine Protein Trace (Negative) H Urine Ketones Negative (Negative) Urine Blood Trace /uL (Negative) H Urine Nitrite Negative (Negative) Urine Bilirubin Negative (Negative) Urine Urobilinogen 2 mg/dL (Negative) H Urine Leukocyte Esterase 1+ /uL (Negative) Urine RBC 12 /hpf (0 - 4) Urine Microscopic WBC 3 /HPF (0-5) Urine Squamous Epithelial Cells Few /hpf (<5) Urine Bacteria None seen /hpf (None Seen) Urine Mucus Few (None Seen) Urine Glucose 3+ mg/dL (Normal) H Assessment/Plan Assessment/Plan Intractable abdominal pain, Diverticulosis, Constipation, Hypertension, Uncontrolled diabetes, Hyperlipidemia, Continue IV abx Plan discussed with: Patient Date of Service: Mar 18, 2025 Billing Provider: FREDERICK FERNANDES MD Common Visit Codes: [id number] INP/OBS CARE(HIGH) FREDERICK FERNANDES MD Mar 18, 2025 16:25
[2025-03-18 17:00] VITALS: BP 114/88; PULSE 87; RESP 17; TEMP 98.3; O2SAT 94
[2025-03-18] MEDS: ACETAMINOPHEN 325 MG TAB PO PRN (19:27)
[2025-03-18 21:00] VITALS: BP 109/77; PULSE 111; RESP 18; TEMP 98; O2SAT 93
[2025-03-19 05:00] VITALS: BP 132/77; PULSE 83; RESP 18; TEMP 97.6; O2SAT 93
[2025-03-19 08:00] VITALS: PULSE 92; RESP 17; O2SAT 92
[2025-03-19 09:00] VITALS: BP 125/80; PULSE 91; RESP 17; TEMP 98.1; O2SAT 92
[2025-03-19] MEDS ORDERED: CIPR500T4 PO (11:49)
[2025-03-19 12:19] VITALS: BP 143/85; PULSE 77; RESP 17; TEMP 98.1; O2SAT 93
[2025-03-19 12:26] VITALS: BP 143/85; PULSE 77; RESP 17; TEMP 98.1; O2SAT 93
--- NOTE | 2025-03-19 12:31 | DVHDS2 ---
Discharge Summary Date of Admission Mar 17, 2025 at 14:47 Date of Discharge: Mar 19, 2025 Labs/Diagnostic Data: Laboratory Results Test 03/19/25 05:55 03/18/25 03:36 03/17/25 09:28 POC Glucose 120 mg/dl (70-106) White Blood Count 6.4 10^3/uL (4.4-10.8) Red Blood Count 4.23 10^6/uL (4.0-5.20) Hemoglobin 12.7 g/dL (12.2-16.2) Hematocrit 37.7 % (36.0-46.0) Mean Corpuscular Volume 89.1 fL (80.0-100.0) Mean Corpuscular Hemoglobin 30.0 pg (28.0-32.0) Mean Corpuscular Hemoglobin Concent 33.7 g/dL (32.0-36.0) Red Cell Distribution Width 15.3 % (11.8-14.3) Platelet Count 175 10^3/uL (140-450) Mean Platelet Volume 9.2 fL (6.9-10.8) Neutrophils (%) (Auto) 51.6 % (37.0-80.0) Lymphocytes (%) (Auto) 28.2 % (10.0-50.0) Monocytes (%) (Auto) 7.8 % (0.0-12.0) Eosinophils (%) (Auto) 11.7 % (0.0-7.0) Basophils (%) (Auto) 0.7 % (0.0-2.0) Neutrophils # (Auto) 3.3 10 ^3/uL (1.6-8.6) Lymphocytes # (Auto) 1.8 10 ^3/uL (0.4-5.4) Monocytes # (Auto) 0.5 10 ^3/uL (0-1.3) Eosinophils # (Auto) 0.8 10 ^3/uL (0-0.8) Basophils # (Auto) 0 10 ^3/uL (0-0.2) Nucleated Red Blood Cells 0.1 % Sodium Level 144 mmol/L (136-145) Potassium Level 3.7 mmol/L (3.5-5.1) Chloride Level 110 mmol/L (98-107) Carbon Dioxide Level 25 mmol/L (20-31) Anion Gap 9 (5-15) Blood Urea Nitrogen 13 mg/dL (9-23) Creatinine 0.67 mg/dL (0.550-1.02) Glomerular Filtration Rate Calc 101 mL/min (>90) BUN/Creatinine Ratio 19.4 (10.0-20.0) Serum Glucose 114 mg/dL (74-106) Hemoglobin A1c 9.0 % A1C (<5.7) Calcium Level 8.6 mg/dL (8.7-10.4) Total Bilirubin 1.1 mg/dL (0.2-1.0) Aspartate Amino Transferase (AST) 30 U/L (13-40) Alanine Aminotransferase (ALT) 22 U/L (7-40) Alkaline Phosphatase 123 U/L (46-116) Total Protein 6.2 g/dL (5.7-8.2) Albumin 3.7 g/dL (3.2-4.8) Urine Color Yellow (Yellow) Urine Clarity Clear (Clear) Urine pH 6.0 (5.0-9.0) Urine Specific [place] 1.031 (1.001-1.035) Urine Protein Trace (Negative) Urine Ketones Negative (Negative) Urine Blood Trace /uL (Negative) Urine Nitrite Negative (Negative) Urine Bilirubin Negative (Negative) Urine Urobilinogen 2 mg/dL (Negative) Urine Leukocyte Esterase 1+ /uL (Negative) Urine RBC 12 /hpf (0 - 4) Urine Microscopic WBC 3 /HPF (0-5) Urine Squamous Epithelial Cells Few /hpf (<5) Urine Bacteria None seen /hpf (None Seen) Urine Mucus Few (None Seen) Urine Glucose 3+ mg/dL (Normal) Other Laboratory Tests 03/18/25 03:36 Brief Hx & Hospital Course: 59-year-old female with past medial history of hypertension, hyperlipidemia, diabetes, and CVA, who came in with complaints of flank pain and pelvic pain. Patient states she has been experiencing pelvic pain for 3 months, and flank pain for about 2 months. She was seen by her primary care provider today who ordered an ultrasound and x-rays for her complaints. She was also told to go to the ER if the pain becomes too severe. She was able to complete the ultrasound but not get the x-rays completed due to the pain increasing and she came to the hospital. all imaging negative for acute injuries or infection off antibiotics Condition at Discharge: Good Final Diagnosis/Problems List Abdominal pain Discharge Disposition: Home Discharge Instruct/Medications Diet: Regular Activity: No Restrictions, As Tolerated Follow Up/Referral: PCP in 7 days Medications: ciprofloxacin Discharge Statement: "Patient was advised to return to the ER or call 911 if any headaches, dizziness, shortness of breath, chest pain, abdominal pain, bleeding, fevers, or worsening of medical condition. Patient was counseled about treatment plan, medications, possible side effects, patientverbalized understanding. All questions were answered to the best of my ability. This discharge took greater then 30 minutes in planning, reviewing documentation, counseling the patient, and discussing with other team members." ASSESSMENT ASSESSMENT Assessment Abdominal pain Date of Service: Mar 19, 2025 Billing Provider: FREDERICK FERNANDES MD Common Visit Codes: 33335-RTP/OBS DISCH DAY >30min FREDERICK FERNANDES MD Mar 19, 2025 12:31
[2025-03-19 13:00] VITALS: BP 143/85; PULSE 77; RESP 17; TEMP 98.1; O2SAT 93
== END 2025-03-19 15:15 | disposition home or self-care (01) | DRG 247 ==
LOC: ER 09:16 → OVERFLOW 14:47 → EAST 03-18 09:53
PROVIDERS: ADMIT Hospitalist; ATTEND Hospitalist
DX: K56.41 Fecal impaction (principal); E11.9 Type 2 diabetes mellitus without complications; K57.30 Diverticulosis of large intestine without perforation or abscess without bleeding; E78.5 Hyperlipidemia, unspecified; I10 Essential (primary) hypertension; Z90.710 Acquired absence of both cervix and uterus; Z90.49 Acquired absence of other specified parts of digestive tract; Z86.73 Personal history of transient ischemic attack (TIA), and cerebral infarction without residual deficits; Z79.899 Other long term (current) drug therapy; Z79.84 Long term (current) use of oral hypoglycemic drugs; Z79.82 Long term (current) use of aspirin
CPT/HCPCS: 36415; 74176; 80048; 80053; 81001; 82962; 83036; 85025; 96361; 96374; 96375; 97163; 99291; G0378; J1815; J2405

== ENCOUNTER 2025-05-13 09:33 | Outpatient (CLI) | payer MEDICAID ==
[~2025-05-13 09:33] MED LIST changes: +CIPR500T4 PO; +HYDR25TA5 PO; +LOSA-534 PO
[2025-05-13 10:28] LABS: Alanine Aminotransferase 20 U/L (7-40); Anion Gap 10 (5-15); BUN/Creatinine Ratio 18.1 (10.0-20.0); Blood Urea Nitrogen 17 mg/dL (9-23); Calcium 9.3 mg/dL (8.7-10.4); Carbon Dioxide 27 mmol/L (20-31); Chloride 105 mmol/L (98-107); Potassium 3.8 mmol/L (3.5-5.1); Sodium 142 mmol/L (136-145); Total Protein 7.0 g/dL (5.7-8.2)
[2025-05-13 10:29] LABS: Albumin 4.4 g/dL (3.2-4.8); Bilirubin, Total 1.0 mg/dL (0.2-1.0)
[2025-05-13 10:30] LABS: INR 1.01 (0.9-1.15); Partial Thromboplastin Time 25.0 SEC (24.5-34.5); Prothrombin Time 10.7 sec (9.3-11.8)
[2025-05-13] MEDS ORDERED: SEMA2INJ3 SC (10:30)
[2025-05-13] MEDS ORDERED: VENL1TAB97 PO (10:32)
[2025-05-13] MEDS ORDERED: GABA-1250 PO (10:33)
[2025-05-13] MEDS ORDERED: HYDR25TA4 PO (10:33)
[2025-05-13 10:35] LABS: Urine Protein, UAD 1+ (Negative)
[2025-05-13 10:51] LABS: Alkaline Phosphatase 145 U/L (46-116); Glucose 152 mg/dL (74-106)
[2025-05-13 11:15] LABS: Hematocrit 41.4 % (36.0-46.0); Hemoglobin 14.0 g/dL (12.2-16.2); Mean Corpuscular Hemoglobin 30.4 pg (28.0-32.0); Mean Corpuscular Volume 89.9 fL (80.0-100.0); Nucleated Red Blood Cells % 0.1 %
[2025-05-14] MEDS ORDERED: METF-370 PO (14:18)
[2025-05-14] MEDS ORDERED: ASPI1TAB19 PO (14:22)
[2025-05-14] MEDS ORDERED: ATOR-507 PO (14:22)
== END 2025-05-13 17:00 | disposition home or self-care (01) ==
LOC: LAB 09:33
PROVIDERS: ATTEND Internal Medicine
DX: Z01.812 Encounter for preprocedural laboratory examination (principal); R00.2 Palpitations; Z79.01 Long term (current) use of anticoagulants
CPT/HCPCS: 36415; 80053; 81001; 85025; 85610; 85730

== ENCOUNTER 2025-05-14 06:30 | Day surgery (SDC) | payer MEDICAID ==
[~2025-05-14 06:30] MED LIST changes: +GABA-1250 PO; +HYDR25TA4 PO; +SEMA2INJ3 SC; +VENL1TAB97 PO
[2025-05-14] MEDS: MIDAZOLAM HCL 2MG/2ML 2ml VIAL (1mg/ml) ONE (12:46)
[2025-05-14] MEDS: LIDOCAINE 2%HCL (LOCAL ANESTH.) INJ 20ML MDV ONE (12:46)
[2025-05-14] MEDS: fentaNYL CITRATE 100 MCG/2 ML VL ONE (12:46)
[2025-05-14 13:45] VITALS: BP 120/73; PULSE 77; RESP 17; TEMP 97.9; O2SAT 97
[2025-05-14 14:00] VITALS: BP 114/75; PULSE 90; RESP 17; O2SAT 98
[2025-05-14 14:15] VITALS: BP 114/67; PULSE 78; RESP 18; O2SAT 96
[2025-05-14] MEDS ORDERED: METF-370 PO (14:18)
[2025-05-14] MEDS ORDERED: GABA-1250 PO (14:18)
[2025-05-14] MEDS ORDERED: ASPI1TAB19 PO (14:22)
[2025-05-14] MEDS ORDERED: ATOR-507 PO (14:22)
[2025-05-14 14:29] VITALS: BP 113/76; PULSE 74; RESP 16; O2SAT 97
[2025-05-14 14:57] VITALS: BP 104/69; PULSE 74; RESP 16; O2SAT 98
== END 2025-05-14 15:00 | disposition home or self-care (01) ==
LOC: CATH 06:30
PROVIDERS: ATTEND Internal Medicine
DX: Z45.09 Encounter for adjustment and management of other cardiac device (principal); R00.2 Palpitations; R06.02 Shortness of breath; I10 Essential (primary) hypertension; Z79.899 Other long term (current) drug therapy
CPT/HCPCS: 33286; J2250; J3010; J7040; 99152

== ENCOUNTER 2025-06-24 10:39 | Outpatient (CLI) | payer MEDICAID ==
[~2025-06-24 10:39] MED LIST changes: -ASPI-325 PO; +ASPI1TAB19 PO; +ATOR-507 PO; -ATOR20TA50 PO; -CIPR500T4 PO; -EMPA1TAB PO; -HYDR25TA5 PO; +METF-370 PO; -METF-489 PO; -[UNRECOGNIZED DRUG - CODE] SUBCUT
[2025-06-24 11:21] LABS: Urine Protein, UAD Negative (Negative)
[2025-06-24 11:23] LABS: Hematocrit 41.5 % (36.0-46.0); Hemoglobin 13.8 g/dL (12.2-16.2); Mean Corpuscular Hemoglobin 29.7 pg (28.0-32.0); Mean Corpuscular Volume 89.3 fL (80.0-100.0); Nucleated Red Blood Cells % 0.0 %
[2025-06-24 11:32] LABS: Alanine Aminotransferase 20 U/L (7-40); Albumin 4.1 g/dL (3.2-4.8); Anion Gap 10 (5-15); BUN/Creatinine Ratio 14.9 (10.0-20.0); Blood Urea Nitrogen 11 mg/dL (9-23); Calcium 9.2 mg/dL (8.7-10.4); Carbon Dioxide 26 mmol/L (20-31); Chloride 107 mmol/L (98-107); Potassium 3.7 mmol/L (3.5-5.1); Sodium 143 mmol/L (136-145); Total Protein 7.3 g/dL (5.7-8.2); Triglycerides 51 mg/dL (< 150)
[2025-06-24 11:33] LABS: Alkaline Phosphatase 138 U/L (46-116); Cholesterol 130 mg/dL (< 200); Glucose 142 mg/dL (74-106); HDL Cholesterol 47 mg/dL (40-59)
[2025-06-24 11:37] LABS: Bilirubin, Total 1.2 mg/dL (0.2-1.0)
[2025-06-24 12:15] LABS: Microalb/Creat Ratio, Urine 4.0
== END 2025-06-24 17:00 | disposition home or self-care (01) ==
LOC: LAB 10:39
PROVIDERS: ATTEND Internal Medicine
DX: I12.9 Hypertensive chronic kidney disease with stage 1 through stage 4 chronic kidney disease, or unspecified chronic kidney disease (principal); E11.22 Type 2 diabetes mellitus with diabetic chronic kidney disease; N18.2 Chronic kidney disease, stage 2 (mild); E78.5 Hyperlipidemia, unspecified; E11.69 Type 2 diabetes mellitus with other specified complication; R31.9 Hematuria, unspecified; Z00.01 Encounter for general adult medical examination with abnormal findings
CPT/HCPCS: 36415; 80053; 80061; 81001; 82043; 82570; 83036; 84439; 84443; 85025

== ENCOUNTER 2025-07-03 09:53 | Outpatient (CLI) | payer MEDICAID ==
[2025-07-05 06:06] LABS: Chlamydia Trachomatis, NAA Negative (Negative); Neisseria gonorrhoeae, NAA Negative (Negative)
== END 2025-07-03 17:00 | disposition home or self-care (01) ==
LOC: LAB 09:53
PROVIDERS: ATTEND Internal Medicine
DX: I12.9 Hypertensive chronic kidney disease with stage 1 through stage 4 chronic kidney disease, or unspecified chronic kidney disease (principal); E11.22 Type 2 diabetes mellitus with diabetic chronic kidney disease; N18.2 Chronic kidney disease, stage 2 (mild); R30.0 Dysuria
CPT/HCPCS: 36415; 86703; 86735; 86762; 86765; 86780; 86787

== ENCOUNTER 2025-07-07 08:38 | Outpatient (CLI) | payer MEDICAID ==
[~2025-07-07] VITALS: Ht 157.5 cm; Wt 92.5 kg
[2025-07-07] MEDS: REGADENOSON 0.4 MG/5 ML SYRG IV ONE ×2 (10:37→10:40)
--- NOTE | 2025-07-07 12:13 | DVHSR ---
APPROVED REPORT Exam: Nuclear Stress Test BMI: 0 Stress Test Details HR Max Heart Rate (APMHR): 162.902831 bpm Target HR (85% APMHR): 137.090539 bpm BP ECG Stress ECG Conclusion lvef 70% normal perfusion scan no ischemia NM EXAM: Myocardial Perfusion REST/STRESS Imaging Protocol: Rest Tc-99m/Stress Tc-99m 1 day Resting Data Rest SPECT myocardial perfusion imaging was performed in supine position 60 minutes following the int ravenous injection of 9.0 mCi of Tc-99m Sestamibi. Time of rest injection: 09:10 Date: 07/07/2025 Time of rest imagin:10 Date: 07/07/2025 Administration Route: IV Administration Site: Right AC Pharmacologic Stress Pharmacologic stress test was performed by injecting Regadenoson 0.4 mg IV push followed by the intra venous injection of 29.4 mCi of Tc-99m Sestamibi. Time of stress injection: 10:40 Date: 07/07/2025 Time of stress imagin:40 Date: 07/07/2025 Administration Route: IV Administration Site: Right AC Gated Stress SPECT was performed 60 minutes after stress injection. The images were gated to evaluate regional wall motion and calculate left ventricular ejection fracti on. Stress only was performed in the Supine position. Nuclear Conclusion Nuclear Findings: negative for ischemia lvef 70% normal perfusion scan no ischemia
== END 2025-07-07 17:00 | disposition home or self-care (01) ==
LOC: XYW 08:38
PROVIDERS: ATTEND Internal Medicine
DX: R07.9 Chest pain, unspecified (principal)
CPT/HCPCS: 78452; 93017; A9500; J2785